=== PATIENT | female | born 1935 | race Hispanic/Latino ===

== ENCOUNTER 2017-04-23 11:24 | Emergency (ER) | payer MEDICARE, MEDICAID ==
[2017-04-23 11:38] VITALS: BP 142/76; TEMP 97.6
--- NOTE | 2017-04-23 13:30 | C.PDOC ---
History Of Present Illness 81 year old female presents to the ED with her sister for evaluation of a cut which she sustained to her left arm yesterday afternoon. Patient states she accidentally hit her arm against a door and sustained a cut since yesterday. Since the incident, patient applied Neosporin ointment has been cleaning the area regularly. Patient reports the is area was bleeding continuously and she has changed the dressing several times. Patient notes swelling of the arm and denies head injury LOC, extremity numbness/weakness. Time Seen by Provider: 04/23/17 12:38 Chief Complaint (Nursing): Abnormal Skin Integrity History Per: Patient, Family History/Exam Limitations: no limitations Current Symptoms Are (Timing): Still Present Location Of Injury: Left: Arm Quality Of Symptoms: Painful, Swollen Additional History Per: Patient, Family (sister) Past Medical History Reviewed: Historical Data, Nursing Documentation, Vital Signs Vital Signs: Last Vital Signs Temp 97.6 F 04/23/17 11:35 Pulse 75 04/23/17 13:53 Resp 18 04/23/17 13:53 BP 142/76 04/23/17 11:35 Pulse Ox 95 04/23/17 13:53 - Medical History PMH: Gall Bladder Disease, HTN, Hypercholesterolemia Denies: Alzheimer's Disease, Anemia, Arthritis, Asthma, Atrial Fibrillation, Bronchitis, Cardia Arrhythmia, CHF, COPD, Crohn's Disease, Dementia, Diverticulitis, Emphysema, Fractures, Gastritis, HIV, Hyperthyroidism, Hypothyroidism, Kidney Stones, Migraine, Mitral Valve Prolapse, Multiple Sclerosis, Osteoporosis, Pancreatitis, Parkinson's Disease, Peripheral Edema, Pneumonia, Pulmonary Embolism, Rheumatoid Arthritis, Seizures, Sickle Cell Disease, Sexually Transmitted Disease, Sleep Apnea, TIA Surgical History: Cholecystectomy Denies: Pacemaker - [facility] Procedures CORONAR ARTERIOGR-2 CATH (10/02/13) LEFT HEART CARDIAC CATH (10/02/13) LT HEART ANGIOCARDIOGRAM (10/02/13) PACKED CELL TRANSFUSION (10/02/13) VENOUS CATHETERIZATION NEC (10/02/13) Family History: States: Unknown Family Hx - Social History Hx Tobacco Use: Yes Hx Alcohol Use: No Hx Substance Use: No - Immunization History Hx Tetanus Toxoid Vaccination: No Hx Influenza Vaccination: No Hx Pneumococcal Vaccination: No Review Of Systems Musculoskeletal: Positive for: Arm Pain (left ) Skin: Positive for: Other (left arm laceration ) Neurological: Negative for: Weakness, Numbness, Other (head injury/LOC) Physical Exam - Physical Exam Appears: Non-toxic, No Acute Distress Skin: Warm, Dry, Other (1cm laceration to left forearm with active bleeding) Head: Atraumatic, Normacephalic Eye(s): bilateral: Normal Inspection Oral Mucosa: Moist Neck: Supple Extremity: Normal ROM, No Tenderness, Capillary Refill (less than 2 seconds ), No Deformity, Swelling (mild to left forearm ) Pulses: Left Radial: Normal Neurological/Psych: Oriented x3, Normal Speech, Normal Motor, Normal Sensation Gait: Steady ED Course And Treatment O2 Sat by Pulse Oximetry: 93 (on RA) Pulse Ox Interpretation: Normal Laceration - Laceration Repair left forearm Wound Length (In cm): 1 Description Of Wound: Linear Wound Examination: Irrigated With Saline Wound Closure: Steri Strips, Skin Glue Wound Complexity: Simple Medical Decision Making Medical Decision Making: Progress: Tetanus immunization IM administered. 1cm linear laceration to the left forearm. Wound irrigated with NS and explored. No FB seen. No tendon injury. Area cleansed with normal saline. Pressure applied for hemostasis without success. Wound was closed using skin glue and steri stripes. Patient tolerated well with minimal bleeding. On reassessment, patient is resting comfortably, showing no signs of distress and is stable for discharge. Patient is stable for discharge and is advised to follow up with her PMD within 1-2 days for further evaluation and/or return to the ED if symptoms worsen. Disposition - Disposition Referrals: Shaik Randhawa MD [Staff Provider] - Disposition: HOME/ ROUTINE Disposition Time: 13:30 Condition: GOOD Additional Instructions: Keep the wound dry and covered. Prescriptions: Cephalexin [cephalexin] 500 mg PO BID #10 cap Instructions: Laceration (DC), Skin Adhesive Care (ED) Forms: [facility] [employer] [facility] (Icelandic) - Clinical Impression Clinical Impression: Arm laceration - PA / PARTS TECHNICIAN / Resident Statement MD/DO has reviewed & agrees with the documentation as recorded. - Scribe Statement The provider has reviewed the documentation as recorded by the Scribe (Cass Martin) All medical record entries made by the Scribe were at my direction and personally dictated by me. I have reviewed the chart and agree that the record accurately reflects my personal performance of the history, physical exam, medical decision making, and the department course for this patient. I have also personally directed, reviewed, and agree with the discharge instructions and disposition.
[2017-04-23 13:53] VITALS: PULSE 75; RESP 18
[2017-04-23 22:15] VITALS: O2SAT 93
== END 2017-04-23 13:54 | disposition home or self-care (01) ==
LOC: C.ER 11:24
DX: S51.812A Laceration without foreign body of left forearm, initial encounter (principal); W22.8XXA Striking against or struck by other objects, initial encounter

== ENCOUNTER 2017-07-05 12:31 | Emergency (ER) | payer MEDICARE, MEDICAID ==
--- NOTE | 2017-07-05 13:06 | C.PDOC ---
History Of Present Illness 81 year old female, with a past medical history of hypertension, who was brought to the emergency department by EMS complaining of right sided hip pain s /p fall onset x3 days ago. She states the pain goes from the right side of her hip down to the right thigh. She noticed a bruise on right knee. Patient reports tripping at home and falling on her right side. She is not taking any pain medications. Patient states it is painful to walk and denies any head injury. Normally ambulates without cane or assistance. PMD: None provided. - HPI Time Seen by Provider: 07/05/17 12:55 History Per: Patient History/Exam Limitations: no limitations Onset/Duration Of Symptoms: Days (x3) Injury Occurred (Timing): Days Ago: (x3) Location Of Injury: Right: Hip, Thigh - Fall Fall:Prior To Injury: Tripped Past Medical History Reviewed: Historical Data, Nursing Documentation, Vital Signs Vital Signs: Last Vital Signs Temp 98.9 F 07/05/17 14:42 Pulse 63 07/05/17 14:42 Resp 20 07/05/17 14:42 BP 109/48 L 07/05/17 14:42 Pulse Ox 95 07/05/17 14:42 - Medical History PMH: Gall Bladder Disease, HTN, Hypercholesterolemia Surgical History: Cholecystectomy - [facility] Procedures CORONAR ARTERIOGR-2 CATH (10/02/13) LEFT HEART CARDIAC CATH (10/02/13) LT HEART ANGIOCARDIOGRAM (10/02/13) PACKED CELL TRANSFUSION (10/02/13) VENOUS CATHETERIZATION NEC (10/02/13) Family History: States: Unknown Family Hx - Social History Hx Tobacco Use: Yes Hx Alcohol Use: No Hx Substance Use: No - Immunization History Hx Tetanus Toxoid Vaccination: No Hx Influenza Vaccination: No Hx Pneumococcal Vaccination: No Review Of Systems Except As Marked, All Systems Reviewed And Found Negative. Musculoskeletal: Positive for: Leg Pain (right thigh and knee pain), Other ( right sided hip pain) Physical Exam - Physical Exam Appears: Well, No Acute Distress, Other (thin habitus) Skin: Normal Color, Warm, Dry Head: Atraumatic, Normacephalic Eye(s): bilateral: Normal Inspection, PERRL, EOMI Neck: Normal, Normal ROM Chest: Symmetrical Cardiovascular: Rhythm Regular Respiratory: Normal Breath Sounds, No Accessory Muscle Use, No Wheezing Extremity: Tenderness (right hip), No Deformity (no obvious deformity, no leg shortening), No Swelling (hip), No Other (No tenderness to knee, calf or foot. ) Neurological/Psych: Oriented x3, Normal Speech Medical Decision Making Medical Decision Making: Initial Impression: hip pain s/p fall Initial Plan: --Knee 3 views RT [RAD] --Hip min 2v w/ pelvis RT [RAD] --Re-evaluation 1525 Hip x-ray FINDINGS: There is no evidence of acute fracture or dislocation at the right hip. Vascular calcification noted. IMPRESSION: No evidence of acute fracture or dislocation. 1526 Knee x-ray FINDINGS: BONES: Normal. No fracture. JOINTS: Mild osteoarthritic changes JOINT EFFUSION: None. OTHER FINDINGS: Suspicious for osteopenia. Vascular calcification. IMPRESSION: No evidence of acute fracture or dislocation. Reassess Patient remained alert and oriented and stable in no acute distress. I explained resutls to patient. She feels comfortable going home and will be discharged. Rx given. family is at bedside to accompany patient home. Disposition Counseled Patient/Family Regarding: Studies Performed, Diagnosis, Need For Followup, Rx Given - Disposition Referrals: Shaik Randhawa MD [Staff Provider] - James Jernigan III, MD [Staff Provider] - Disposition: HOME/ ROUTINE Disposition Time: 14:29 Condition: STABLE Additional Instructions: Your xray was normal, no fracture. Please apply ice to area 15 minutes three times a day. Take tylenol or pain medicine as needed for pain every 6 hours, with food to not upset stomach. Follow up with orthopedic if pain persists over one week. Prescriptions: Acetaminophen [Tylenol Extra Strength] 500 mg PO Q8 #20 tablet traMADol [Ultram] 50 mg PO Q8 #20 tab Instructions: Hip Contusion (ED) Forms: [facility] (Wolof) - POA Present On Arrival: Falls Or Trauma - Clinical Impression Clinical Impression: Contusion of hip, right - PA / GARNISHER / Resident Statement MD/DO has reviewed & agrees with the documentation as recorded. - Scribe Statement The provider has reviewed the documentation as recorded by the Scribe Documented by Vineet Sams acting as a scribe for GREGORY Arambula All medical record entries made by the Scribe were at my direction and personally dictated by me. I have reviewed the chart and agree that the record accurately reflects my personal performance of the history, physical exam, medical decision making, and the department course for this patient. I have also personally directed, reviewed, and agree with the discharge instructions and disposition.
[2017-07-05 14:43] VITALS: BP 109/48; PULSE 63; RESP 20; TEMP 98.9; O2SAT 95
--- NOTE | 2017-07-05 15:27 | RAD ---
PROCEDURE: X-ray of the pelvis and right hip HISTORY: pain s.p fall COMPARISON: No prior similar study for TECHNIQUE: AP view of the pelvis oblique view of the right hip were obtained. FINDINGS: There is no evidence of acute fracture or dislocation at the right hip. Vascular calcification noted. IMPRESSION: No evidence of acute fracture or dislocation.
--- NOTE | 2017-07-05 15:28 | RAD ---
PROCEDURE: Right Knee Radiographs. HISTORY: pain s.p fall COMPARISON: None. FINDINGS: BONES: Normal. No fracture. JOINTS: Mild osteoarthritic changes JOINT EFFUSION: None. OTHER FINDINGS: Suspicious for osteopenia. Vascular calcification. IMPRESSION: No evidence of acute fracture or dislocation.
== END 2017-07-05 14:43 | disposition home or self-care (01) ==
LOC: C.ER 12:31
DX: S70.01XA Contusion of right hip, initial encounter (principal); W01.0XXA Fall on same level from slipping, tripping and stumbling without subsequent striking against object, initial encounter; Y92.009 Unspecified place in unspecified non-institutional (private) residence as the place of occurrence of the external cause

== ENCOUNTER 2018-12-09 14:10 | Inpatient (IN) | payer MEDICARE, MEDICAID ==
[2018-12-09] MEDS ORDERED: Albuterol 0.083% Inhal Sol (2.5 mg/3 mL) UD IH STA (14:31)
[2018-12-09] MEDS ORDERED: Albuterol-Ipratrop 3 mg / 0.5 (3 ml) UD IH STA (14:31)
--- NOTE | 2018-12-09 14:54 | RAD ---
Date of service: 12/09/2018 HISTORY: SOB COMPARISON: Frontal chest radiograph 10/03/2013. TECHNIQUE: 1 view obtained. FINDINGS: LUNGS: No active pulmonary disease. PLEURA: No significant pleural effusion identified, no pneumothorax apparent. CARDIOVASCULAR: No aortic atherosclerotic calcification present. Normal cardiac size. No pulmonary vascular congestion. Post CABG pattern suggested. OSSEOUS STRUCTURES: Sternotomy wires. VISUALIZED UPPER ABDOMEN: Normal. OTHER FINDINGS: None. IMPRESSION: No interval acute cardiopulmonary disease appreciated.
[2018-12-09 14:58] LABS: BASO # 0.1 K/uL (0.0-0.2); BASO % 0.6 % (0.0-2.0); LYMPH # 0.4 K/uL (1.0-4.3); LYMPH % 3.7 % (20.0-40.0); MEAN CELL VOLUME 91.6 fL (81.0-99.0); MEAN CORPUSCULAR HEMOGLOBIN 30.8 pg (27.0-31.0); MEAN CORPUSCULAR HGB CONC 33.7 g/dL (33.0-37.0); MEAN PLATELET VOLUME 8.2 fL (7.2-11.7); MONO # 0.8 K/uL (0.0-0.8); MONO % 8.6 % (0.0-10.0); NEUT # 8.6 K/uL (1.8-7.0); NEUT % 87.1 % (50.0-75.0); PLATELET COUNT 187 K/uL (130-400); RBC 4.86 Mil/uL (3.80-5.20); RED CELL DISTRIBUTION WIDTH 14.4 % (11.5-14.5)
[2018-12-09 15:00] LABS: WHITE BLOOD COUNT 9.8 K/uL (4.8-10.8)
[2018-12-09 15:14] LABS: ALB/GLOB RATIO 1.3 (1.0-2.1); ALBUMIN 4.2 g/dL (3.5-5.0); ALT/SGPT 18 U/L (9-52); AST/SGOT 35 U/L (14-36); BLOOD UREA NITROGEN 12 mg/dL (7-17); CALCIUM 8.9 mg/dl (8.6-10.4); GFR NON-AFRICAN AMERICAN > 60
--- NOTE | 2018-12-09 15:15 | C.PDOC ---
History Of Present Illness 83-year-old female, whose past medical history includes COPD and asthma, presents to the ED for evaluation of shortness of breath and cough which began two days ago. Patient states her symptoms are worse when lying down and states she has been unable to sleep since the onset. Patient denies fever, but was found to be febrile in the ED. Patient states her cough is productive of white phlegm that is occasionally yellow. She has only been using her Albuterol inhaler without relief. Patient was seen at her PMD, Dr. Randhawa's office, earlier today and was referred to the ED for further evaluation and possible admission. Patient denies chest pain, vomiting, extremity numbness/weakness. Time Seen by Provider: 12/09/18 14:23 Chief Complaint (Nursing): Shortness Of Breath History Per: Patient History/Exam Limitations: no limitations Onset/Duration Of Symptoms: Days (2) Quality: "Pain" Associated Symptoms: Productive Cough. denies: Chest Pain Additional History Per: Patient Past Medical History Reviewed: Historical Data, Nursing Documentation, Vital Signs Vital Signs: Last Vital Signs Temp 103.4 F H 12/09/18 15:10 Pulse 99 H 12/09/18 15:10 Resp 28 H 12/09/18 15:10 BP 150/58 L 12/09/18 15:10 Pulse Ox 99 12/09/18 15:10 Primary Care Provider: Shaik Randhawa - Medical History PMH: COPD, Gall Bladder Disease, HTN, Hypercholesterolemia Denies: HIV Surgical History: CABG, Cholecystectomy - [facility] Procedures CORONAR ARTERIOGR-2 CATH (10/02/13) LEFT HEART CARDIAC CATH (10/02/13) LT HEART ANGIOCARDIOGRAM (10/02/13) PACKED CELL TRANSFUSION (10/02/13) VENOUS CATHETERIZATION NEC (10/02/13) Family History: States: Unknown Family Hx - Social History Hx Tobacco Use: Yes Hx Alcohol Use: No Hx Substance Use: No - Immunization History Hx Tetanus Toxoid Vaccination: No Hx Influenza Vaccination: No Hx Pneumococcal Vaccination: No Review Of Systems Constitutional: Positive for: Fever Cardiovascular: Negative for: Chest Pain Respiratory: Positive for: Cough, Shortness of Breath, Sputum Gastrointestinal: Negative for: Vomiting Neurological: Negative for: Weakness, Numbness Physical Exam - Physical Exam Appears: Non-toxic, Other (in mild respiratory distress ) Skin: Normal Color, Warm, Dry Head: Atraumatic, Normacephalic Oral Mucosa: Moist Neck: Supple Chest: Symmetrical, No Deformity, No Tenderness Cardiovascular: Rhythm Regular Respiratory: Rales (left chest wall ), Rhonchi (left chest wall ), Wheezing (diffuse ), Other (audible wheezing and persistent cough noted. tachypneic ) Gastrointestinal/Abdominal: Soft, No Tenderness Back: Other (kyphosis ) Extremity: Normal ROM, Capillary Refill (less than 2 seconds ) Neurological/Psych: Oriented x3, Normal Speech, Normal Cognition ED Course And Treatment - Laboratory Results Result Diagrams: 12/09/18 14:54 12/09/18 14:54 Lab Interpretation: Abnormal (pO2 52, pCO2 37) ECG: Interpreted By Me ECG Rhythm: Sinus Rhythm, R BBB O2 Sat by Pulse Oximetry: 99 Pulse Ox Interpretation: Normal - Other Rad CXR X-Ray: Interpreted by Me, Viewed By Me Interpretation: Chest X-Ray unchanged from prior done on 09/2013. No acute infiltrates. Progress Note: Bloodwork, CXR, EKG ordered and reviewed. Tylenol PO, Albuterol INH, Solu-Medrol IVP, and IV Fluids given. - Physician Consult Information Time Consulting Physician Contacted: 16:29 Physician Contacted: Chrissie Martin Outcome Of Conversation: Patient to be admitted for cough with fever. Disposition - Disposition Disposition: HOSPITALIZED Disposition Time: 16:40 Condition: FAIR - POA Present On Arrival: None - Clinical Impression Clinical Impression: Chr obstructive pulmonary disease w/ acute lower respiratory infxn - Scribe Statement The provider has reviewed the documentation as recorded by the Scribe (Cass Martin) Provider Attestation: All medical record entries made by the Scribe were at my direction and personally dictated by me. I have reviewed the chart and agree that the record accurately reflects my personal performance of the history, physical exam, medical decision making, and the department course for this patient. I have also personally directed, reviewed, and agree with the discharge instructions and disposition.
[2018-12-09] MEDS ORDERED: Albuterol 0.083% Inhal Sol (2.5 mg/3 mL) UD ONE (15:17)
[2018-12-09] MEDS ORDERED: Albuterol-Ipratrop 3 mg / 0.5 (3 ml) UD ONE (15:18)
[2018-12-09 15:33] LABS: LYMPHOCYTE 1 % (20-40); MONOCYTE 13 % (0-10); NEUTROPHIL 86 % (50-75); PLATELET ESTIMATE NORMAL (NORMAL); TOTAL CELLS COUNTED 100
[2018-12-09 15:51] LABS: VENOUS BLOOD GAS BASE EXCESS 1.7 mmol/L (0.0-2.0); VENOUS BLOOD GAS PCO2 51 mmHg (40-60); VENOUS BLOOD GAS PO2 33 mm/Hg (30-55); VENOUS BLOOD PH 7.35 (7.32-7.43)
[2018-12-09 16:18] LABS: ABG ALLEN TEST POS; ARTERIAL BLOOD GAS HEMOGLOBIN 14.1 g/dL (11.7-17.4); ARTERIAL BLOOD GAS O2 SAT 90.6 % (95-98); ARTERIAL BLOOD GAS PCO2 37 mm/Hg (35-45); ARTERIAL BLOOD GAS PH 7.41 (7.35-7.45); ARTERIAL BLOOD GAS PO2 52 mm/Hg (80-100); ARTERIAL BLOOD GAS TCO2 24.6 mmol/L (22-28)
[2018-12-09] MEDS ORDERED: cefTRIAXone IV 1 gm in Dextros 50 ML IVPB ONE (16:41)
[2018-12-09] MEDS ORDERED: Azithromycin 500mg/250ML NS 500 MG/250 ML BAG IV STA (16:43)
[2018-12-09] MEDS ORDERED: Azithromycin 500mg/250ML NS 500 MG/250 ML BAG IVPB ONE (17:07)
[2018-12-09 17:23] LABS: SQUAMOUS EPITHIAL 2 /hpf (0-5); URINE BACTERIA RARE (<OCC); URINE BILIRUBIN NEGATIVE (NEGATIVE); URINE BLOOD NEGATIVE (NEGATIVE); URINE CLARITY Clear (Clear); URINE COLOR Yellow (YELLOW); URINE GLUCOSE (UA) NORMAL (Normal); URINE LEUKOCYTE ESTERASE NEG Leu/uL (Negative); URINE PROTEIN 2+ mg/dL (NEGATIVE)
--- NOTE | 2018-12-09 17:54 | CP.PCM.CON ---
History of Present Illness - History of Present Illness History of Present Illness: 83-year-old female was admitted via the ED for evaluation of shortness of breath and cough which began two days ago. Patient was found to be febrile in the ED. Patient states her cough is productive of white phlegm that is occasionally yellow. She was referred for ID eval for antibiotic management and started on empiric rx for CAP - Medical History PMH: COPD, Gall Bladder Disease, HTN, Hypercholesterolemia Denies: HIV Surgical History: CABG, Cholecystectomy - [facility] Procedures CORONAR ARTERIOGR-2 CATH (10/02/13) LEFT HEART CARDIAC CATH (10/02/13) LT HEART ANGIOCARDIOGRAM (10/02/13) PACKED CELL TRANSFUSION (10/02/13) VENOUS CATHETERIZATION NEC (10/02/13) Review of Systems - Constitutional Constitutional: As Per HPI, Chills, Fever, Malaise - EENT Eyes: absent: As Per HPI, Blind Spots, Blurred Vision, Change in Vision, Decreased Night Vision, Diplopia, Discharge, Dry Eye, Exophthalmos, Floaters, Irritation, Itchy Eyes, Loss of Peripheral Vision, Pain, Photophobia, Requires Corrective Lenses, Sees Flashes, Spots in Vision, Tunnel Vision, Other Visual Disturbances, Loss of Vision, Other Ears: absent: As Per HPI, Decreased Hearing, Ear Discharge, Ear Pain, Tinnitus, Abnormal Hearing, Disequilibrium, Dizziness, Other Nose/Mouth/Throat: absent: As Per HPI, Epistaxis, Nasal Congestion, Nasal Discharge, Nasal Obstruction, Nasal Trauma, Nose Pain, Post Nasal Drip, Sinus Pain, Sinus Pressure, Bleeding Gums, Change in Voice, Dental Pain, Dry Mouth, Dysphagia, Halitosis, Hoarsness, Lip Swelling, Mouth Lesions, Mouth Pain, Odynophagia, Sore Throat, Throat Swelling, Tongue Swelling, Facial Pain, Neck Pain, Neck Mass, Other - Cardiovascular Cardiovascular: As Per HPI - Respiratory Respiratory: Cough. absent: Hemoptysis - Gastrointestinal Gastrointestinal: As Per HPI - Reproductive: Female Reproductive:Female: absent: As Per HPI, Amenorrhea, Amenorrhea/ Control, Currently Menstual, Cycle <21 Days, Cycle >35 Days, Cycle Variable, Menses 1-7 Days, Menses >/= 8 Days, Menses Variable, Cycle > 4 Weeks Between, No Menses for 6 Months, Heavy Menses, Light Menses, Normal Menses, Spotting Between Cycles, S/P Hysterectomy, Menopausal, Post Menopausal, Premenarche, Abnormal Vaginal Bleeding, Dysmenorrhea, Dyspareunia, Genital Lesions, Genital Pruritis, Pelvic Pain, Prolapse Symptoms, Sexual Dysfunction, Vaginal Discharge, Vaginal Dryness, Vaginal Odor, Vaginal Pruritis, Other - Menstruation Menstruation: absent: As Per HPI, Amenorrhea, Amenorrhea/ Control, Currently Menstual, Cycle <21 Days, Cycle >35 Days, Cycle Variable, Menses 1-7 Days, Menses >/= 8 Days, Menses Variable, Cycle > 4 Weeks Between, No Menses for 6 Months, Heavy Menses, Light Menses, Normal Menses, Spotting Between Cycles, S/P Hysterectomy, Menopausal, Post Menopausal, Premenarche, Abnormal Vaginal Bleeding, Dysmenorrhea, Other - Musculoskeletal Musculoskeletal: absent: As Per HPI, Abnormal Gait, Arthralgias, Atrophy, Back Pain, Deformity, Joint Swelling, Limited Range of Motion, Loss of Height, Muscle Cramps, Muscle Weakness, Myalgias, Neck Pain, Numbness, Radiating Pain into Limb, Stiffness, Tingling, Other - Integumentary Integumentary: absent: As Per HPI, Acne, Alopecia, Bleeding Lesions, Change in Hair, Change in Nails, Change in Pigmentation, Changing Lesions, Dry Skin, Erythema, Furuncle, Hirsutism, Lesions, New Lesions, Non-Healing Lesions, Photosensitivity, Pruritus, Rash, Skin Pain, Skin Ulcer, Sores, Striae, Swelling, Unusual Bruising, Wounds, Jaundice, Other - Neurological Neurological: absent: As Per HPI, Abnormal Gait, Abnormal Hearing, Abnormal Movements, Abnormal Speech, Behavioral Changes, Burning Sensations, Confusion, Convulsions, Disequilibrium, Dizziness, Numbness, Focal Weakness, Frequent Falls, Headaches, Lack of Coordination, Loss of Vision, Memory Loss, Paresthesias, Radicular Pain, Restless Legs, Sensory Deficit, Syncope, Tingling, Tremor, Vertigo, Weakness, Other Visual Disturbances, Other - Psychiatric Psychiatric: absent: As Per HPI, Abnormal Sleep Pattern, Anhedonia, Anxiety, Auditory Hallucinations, Behavioral Changes, Change in Appetite, Change in Libido, Confusion, Depression, Difficulty Concentrating, Hallucinations, Homicidal Ideation, Hopelessness, Irritability, Memory Loss, Mood Swings, Panic Attacks, Paranoia, Suicidal Ideation, Visual Hallucinations, Tactile Hallucinations, Other - Endocrine Endocrine: absent: As Per HPI, Change in Body Appearance, Change in Libido, Cold Intolorance, Deepening of Voice, Excessive Sweating, Fatigue, Flushing, Heat Intolorance, Increase in Ring/Shoe/Hat Size, Palpitations, Polydipsia, Polyphagia, Polyuria, Other - Hematologic/Lymphatic Hematologic: absent: As Per HPI, Easy Bleeding, Easy Bruising, Lymphadenopathy, Other Past Patient History - Past Medical History & Family History Past Medical History?: Yes - Past Social History Smoking Status: Light Smoker < 10 Cigarettes Daily - CARDIAC Hx Hypercholesterolemia: Yes Hx Hypertension: Yes - PULMONARY Hx Chronic Obstructive Pulmonary Disease (COPD): Yes - NEUROLOGICAL Hx Alzheimer's Disease: No Hx Dementia: No Hx Migraine: No Hx Multiple Sclerosis: No Hx Parkinson's Disease: No Hx Seizures: No Hx Transient Ischemic Attacks (TIA): No - HEENT Hx HEENT Problems: No Hx Blind: No Hx Cataracts: Yes (bilateral cataract removal 15 yr ago) Hx Deafness: No Hx Difficulty Chewing: No Hx Epistaxis: No Hx Glaucoma: No Hx Macular Degeneration: No - RENAL Hx Kidney Stones: No - ENDOCRINE/METABOLIC Hx Hyperthyroidism: No Hx Hypothyroidism: No - HEMATOLOGICAL/ONCOLOGICAL Hx Human Immunodeficiency Virus (HIV): No - INTEGUMENTARY Hx Basil Cell: No Hx Shaffer: No Hx Cellulitis: No Hx Eczema: No Hx Melanoma: No Hx Psoriasis: No Hx Squamous Cell: No - MUSCULOSKELETAL/RHEUMATOLOGICAL Hx Arthritis: No Hx Fractures: No Hx Osteoporosis: No Hx Rheumatoid Arthritis: No - GASTROINTESTINAL Hx Gall Bladder Disease: Yes - GENITOURINARY/GYNECOLOGICAL Hx Sexually Transmitted Disorders: No - PSYCHIATRIC Hx Substance Use: No - SURGICAL HISTORY Hx Cholecystectomy: Yes Hx Coronary Artery Bypass Graft: Yes Meds Allergies/Adverse Reactions: Allergies Allergy/AdvReac Type Severity Reaction Status Date / Time No Known Allergies Allergy Verified 12/09/18 14:22 - Medications Medications: Current Medications Azithromycin (Zithromax 500mg In Ns Addvantage) 500 mg in 250 mls @ 166.667 mls/hr IV STAT STA; Protocol Stop: 12/09/18 18:12 Last Admin: 12/09/18 17:15 Dose: 166.667 mls/hr Physical Exam - Constitutional Appears: Toxic, In Acute Distress - Head Exam Head Exam: ATRAUMATIC, NORMOCEPHALIC - Eye Exam Eye Exam: absent: Scleral icterus Pupil Exam: NORMAL ACCOMODATION - ENT Exam ENT Exam: Mucous Membranes Dry, Normal External Ear Exam, Normal Oropharynx - Neck Exam Neck exam: Positive for: Normal Inspection - Respiratory Exam Respiratory Exam: Decreased Breath Sounds, Prolonged Expiratory Phase, Rhonchi - Cardiovascular Exam Cardiovascular Exam: Tachycardia, REGULAR RHYTHM, +S1, +S2 - GI/Abdominal Exam GI & Abdominal Exam: Soft. absent: Diminished Bowel Sounds, Tenderness - Rectal Exam Rectal Exam: Deferred - Exam Exam: NORMAL INSPECTION - Extremities Exam Extremities exam: Negative for: calf tenderness, pedal edema - Back Exam Back exam: absent: CVA tenderness (L), CVA tenderness (R), paraspinal tenderness - Neurological Exam Neurological exam: Alert, CN II-XII Intact, Oriented x3, Reflexes Normal - Psychiatric Exam Psychiatric exam: Depressed - Skin Skin Exam: Dry, Intact Results - Vital Signs Recent Vital Signs: Last Vital Signs Temp 101 F H 12/09/18 17:28 Pulse 86 12/09/18 17:28 Resp 21 12/09/18 17:28 BP 109/50 L 12/09/18 17:28 Pulse Ox 94 L 12/09/18 17:28 - Labs Result Diagrams: 12/09/18 14:54 12/09/18 14:54 Labs: Laboratory Results - last 24 hr 12/09/18 12/09/18 12/09/18 14:54 14:54 15:40 WBC 9.8 D RBC 4.86 Hgb 15.0 D Hct 44.5 MCV 91.6 MCH 30.8 MCHC 33.7 RDW 14.4 Plt Count 187 MPV 8.2 Neut % (Auto) 87.1 H Lymph % (Auto) 3.7 L [place] % (Auto) 8.6 Eos % (Auto) 0.0 Baso % (Auto) 0.6 Neut # (Auto) 8.6 H Lymph # (Auto) 0.4 L [place] # (Auto) 0.8 Eos # (Auto) 0.0 Baso # (Auto) 0.1 Neutrophils % (Manual) 86 H Lymphocytes % (Manual) 1 L Monocytes % (Manual) 13 H Platelet Estimate Normal RBC Morphology Normal Puncture Site pCO2 pO2 33 HCO3 ABG pH ABG Total CO2 ABG O2 Saturation ABG Base Excess ABG Hemoglobin ABG Carboxyhemoglobin POC ABG HHb (Measured) ABG Methemoglobin Kirk Test VBG pH 7.35 VBG pCO2 51 VBG HCO3 25.2 VBG Total CO2 29.8 H VBG O2 Sat (Calc) 63.5 VBG Base Excess 1.7 VBG Potassium 4.1 A-a O2 Difference Respiratory Index Hgb O2 Saturation Glucose 123 H Lactate 1.4 Liter Flow FiO2 Sodium 135 136.0 Potassium 4.3 Chloride 99 101.0 Carbon Dioxide 28 Anion Gap 13 BUN 12 Creatinine 0.6 L Est GFR ( Amer) > 60 Est GFR (Non-Af Amer) > 60 Random Glucose 128 H D Calcium 8.9 Total Bilirubin 0.4 AST 35 ALT 18 Alkaline Phosphatase 111 Total Protein 7.5 Albumin 4.2 Globulin 3.3 Albumin/Globulin Ratio 1.3 Venous Blood Potassium 4.1 Urine Color Urine Clarity Urine pH Ur Specific [place] Urine Protein Urine Glucose (UA) Urine Ketones Urine Blood Urine Nitrate Urine Bilirubin Urine Urobilinogen Ur Leukocyte Esterase Urine WBC (Auto) Urine RBC (Auto) Ur Squamous Epith Cells Urine Bacteria 12/09/18 12/09/18 16:15 16:54 WBC RBC Hgb Hct MCV MCH MCHC RDW Plt Count MPV Neut % (Auto) Lymph % (Auto) [place] % (Auto) Eos % (Auto) Baso % (Auto) Neut # (Auto) Lymph # (Auto) [place] # (Auto) Eos # (Auto) Baso # (Auto) Neutrophils % (Manual) Lymphocytes % (Manual) Monocytes % (Manual) Platelet Estimate RBC Morphology Puncture Site Rra pCO2 37 pO2 52 L HCO3 24.0 ABG pH 7.41 ABG Total CO2 24.6 ABG O2 Saturation 90.6 L ABG Base Excess -0.8 ABG Hemoglobin 14.1 ABG Carboxyhemoglobin 4.9 H POC ABG HHb (Measured) 8.8 H ABG Methemoglobin 1.3 Kirk Test Pos VBG pH VBG pCO2 VBG HCO3 VBG Total CO2 VBG O2 Sat (Calc) VBG Base Excess VBG Potassium A-a O2 Difference 130.0 Respiratory Index 2.5 Hgb O2 Saturation 85.0 L Glucose Lactate Liter Flow 3.0 FiO2 32.0 Sodium Potassium Chloride Carbon Dioxide Anion Gap BUN Creatinine Est GFR ( Amer) Est GFR (Non-Af Amer) Random Glucose Calcium Total Bilirubin AST ALT Alkaline Phosphatase Total Protein Albumin Globulin Albumin/Globulin Ratio Venous Blood Potassium Urine Color Yellow Urine Clarity Clear Urine pH 5.0 Ur Specific [place] 1.020 Urine Protein 2+ H Urine Glucose (UA) Normal Urine Ketones Negative Urine Blood Negative Urine Nitrate Negative Urine Bilirubin Negative Urine Urobilinogen 2.0 H Ur Leukocyte Esterase Neg Urine WBC (Auto) 1 Urine RBC (Auto) 1 Ur Squamous Epith Cells 2 Urine Bacteria Rare Assessment & Plan (1) Chr obstructive pulmonary disease w/ acute lower respiratory infxn Status: Acute (2) Sepsis Status: Acute (3) Bronchopneumonia Status: Acute - Assessment and Plan (Free Text) Assessment: ICU eval empoiric IV rx cultures and serologies
[2018-12-09] MEDS ORDERED: Albuterol-Ipratrop 3 mg / 0.5 (3 ml) UD INH STA (18:02)
[2018-12-09] MEDS ORDERED: Albuterol 0.083% Inhal Sol (2.5 mg/3 mL) UD INH PRN (18:07)
--- NOTE | 2018-12-09 18:20 | CP.PCM.CON ---
<Blayne Raines - Last Filed: 12/09/18 18:11> History of Present Illness - History of Present Illness History of Present Illness: PGY-1 Critical Care Consult Note for Dr. Simms Reason for consult: COPD, respiratory distress Patient is an 83 year old female with past medical history of COPD, asthma, CAD s/p CABG, PVD, HTN, HLD presenting to ED from PMD's office with worsening shortness of breath and associated productive cough (whitish yellow phlegm) that began 2 days prior to arrival. Symptoms are worse when lying flat and she has been unable to sleep since onset of symptoms. She has only been using her home albuterol inhaler without relief of symptoms. She was seen by her PMD (Dr. Randhawa) earlier today and was referred to ED for further evaluation. Denies fevers/chills, headaches, dizziness, chest pain, palpitations, abdominal pain, n/v/d/c, dysuria, or changes in stool. 12 pt ROS reviewed and otherwise negative. Of note, patient was febrile in the ED with a Tmax of 103.4. She received albuterol x 1, duoneb x1, solumedrol 125 mg IVP x1, as well as empiric abx with rocephin/azithromycin x1. PMHx: COPD, asthma, CAD, PVD PSHx: CABG 2008, b/l femoropopliteal bypass, cholecystectomy Allergies: NKDA Home Meds: reviewed Family Hx: unknown Social Hx: Denies alcohol or illicit drug use. + tobacco (<10 cigarettes daily x ~60 years) Review of Systems - Review of Systems All systems: reviewed and no additional remarkable complaints except Review of Systems: as per HPI Past Patient History - Past Medical History & Family History Past Medical History?: Yes - Past Social History Smoking Status: Light Smoker < 10 Cigarettes Daily - CARDIAC Hx Hypercholesterolemia: Yes Hx Hypertension: Yes - PULMONARY Hx Chronic Obstructive Pulmonary Disease (COPD): Yes - NEUROLOGICAL Hx Alzheimer's Disease: No Hx Dementia: No Hx Migraine: No Hx Multiple Sclerosis: No Hx Parkinson's Disease: No Hx Seizures: No Hx Transient Ischemic Attacks (TIA): No - HEENT Hx HEENT Problems: No Hx Blind: No Hx Cataracts: Yes (bilateral cataract removal 15 yr ago) Hx Deafness: No Hx Difficulty Chewing: No Hx Epistaxis: No Hx Glaucoma: No Hx Macular Degeneration: No - RENAL Hx Kidney Stones: No - ENDOCRINE/METABOLIC Hx Hyperthyroidism: No Hx Hypothyroidism: No - HEMATOLOGICAL/ONCOLOGICAL Hx Human Immunodeficiency Virus (HIV): No - INTEGUMENTARY Hx Basil Cell: No Hx Shaffer: No Hx Cellulitis: No Hx Eczema: No Hx Melanoma: No Hx Psoriasis: No Hx Squamous Cell: No - MUSCULOSKELETAL/RHEUMATOLOGICAL Hx Arthritis: No Hx Fractures: No Hx Osteoporosis: No Hx Rheumatoid Arthritis: No - GASTROINTESTINAL Hx Gall Bladder Disease: Yes - GENITOURINARY/GYNECOLOGICAL Hx Sexually Transmitted Disorders: No - PSYCHIATRIC Hx Substance Use: No - SURGICAL HISTORY Hx Cholecystectomy: Yes Hx Coronary Artery Bypass Graft: Yes Meds Allergies/Adverse Reactions: Allergies Allergy/AdvReac Type Severity Reaction Status Date / Time No Known Allergies Allergy Verified 12/09/18 14:22 - Medications Medications: Current Medications Albuterol Sulfate (Albuterol 0.083% Inhal Domi (2.5 Mg/3 Ml) Ud) 2.5 mg INH RQ6 PRN PRN Reason: Shortness of Breath Azithromycin (Zithromax 500mg In Ns Addvantage) 500 mg in 250 mls @ 166.667 mls/hr IV STAT STA; Protocol Stop: 12/09/18 18:12 Last Admin: 12/09/18 17:15 Dose: 166.667 mls/hr Physical Exam - Constitutional Appears: Non-toxic, Other (mild respiratory distress) - Head Exam Head Exam: ATRAUMATIC, NORMAL INSPECTION, NORMOCEPHALIC - Eye Exam Eye Exam: EOMI, Normal appearance, PERRL Pupil Exam: NORMAL ACCOMODATION - ENT Exam ENT Exam: Mucous Membranes Moist, Normal Exam - Neck Exam Neck exam: Positive for: Normal Inspection - Respiratory Exam Respiratory Exam: Decreased Breath Sounds, Rhonchi, Wheezes. absent: Accessory Muscle Use - Cardiovascular Exam Cardiovascular Exam: Tachycardia, +S1, +S2 - GI/Abdominal Exam GI & Abdominal Exam: Normal Bowel Sounds, Soft. absent: Distended, Firm, Guarding, Rebound, Rigid, Tenderness - Extremities Exam Extremities exam: Positive for: normal capillary refill, normal inspection, pedal pulses present. Negative for: calf tenderness, pedal edema - Back Exam Back exam: NORMAL INSPECTION - Neurological Exam Neurological exam: Alert, Oriented x3 - Skin Skin Exam: Dry, Intact, Normal Color, Warm Results - Vital Signs Recent Vital Signs: Last Vital Signs Temp 101 F H 12/09/18 17:28 Pulse 86 12/09/18 17:28 Resp 21 12/09/18 17:28 BP 109/50 L 12/09/18 17:28 Pulse Ox 94 L 12/09/18 17:28 - Labs Result Diagrams: 12/09/18 14:54 12/09/18 14:54 Labs: Laboratory Results - last 24 hr 12/09/18 12/09/18 12/09/18 14:54 14:54 15:40 WBC 9.8 D RBC 4.86 Hgb 15.0 D Hct 44.5 MCV 91.6 MCH 30.8 MCHC 33.7 RDW 14.4 Plt Count 187 MPV 8.2 Neut % (Auto) 87.1 H Lymph % (Auto) 3.7 L [place] % (Auto) 8.6 Eos % (Auto) 0.0 Baso % (Auto) 0.6 Neut # (Auto) 8.6 H Lymph # (Auto) 0.4 L [place] # (Auto) 0.8 Eos # (Auto) 0.0 Baso # (Auto) 0.1 Neutrophils % (Manual) 86 H Lymphocytes % (Manual) 1 L Monocytes % (Manual) 13 H Platelet Estimate Normal RBC Morphology Normal Puncture Site pCO2 pO2 33 HCO3 ABG pH ABG Total CO2 ABG O2 Saturation ABG Base Excess ABG Hemoglobin ABG Carboxyhemoglobin POC ABG HHb (Measured) ABG Methemoglobin Kirk Test VBG pH 7.35 VBG pCO2 51 VBG HCO3 25.2 VBG Total CO2 29.8 H VBG O2 Sat (Calc) 63.5 VBG Base Excess 1.7 VBG Potassium 4.1 A-a O2 Difference Respiratory Index Hgb O2 Saturation Glucose 123 H Lactate 1.4 Liter Flow FiO2 Sodium 135 136.0 Potassium 4.3 Chloride 99 101.0 Carbon Dioxide 28 Anion Gap 13 BUN 12 Creatinine 0.6 L Est GFR ( Amer) > 60 Est GFR (Non-Af Amer) > 60 Random Glucose 128 H D Calcium 8.9 Total Bilirubin 0.4 AST 35 ALT 18 Alkaline Phosphatase 111 Total Protein 7.5 Albumin 4.2 Globulin 3.3 Albumin/Globulin Ratio 1.3 Venous Blood Potassium 4.1 Urine Color Urine Clarity Urine pH Ur Specific [place] Urine Protein Urine Glucose (UA) Urine Ketones Urine Blood Urine Nitrate Urine Bilirubin Urine Urobilinogen Ur Leukocyte Esterase Urine WBC (Auto) Urine RBC (Auto) Ur Squamous Epith Cells Urine Bacteria 12/09/18 12/09/18 16:15 16:54 WBC RBC Hgb Hct MCV MCH MCHC RDW Plt Count MPV Neut % (Auto) Lymph % (Auto) [place] % (Auto) Eos % (Auto) Baso % (Auto) Neut # (Auto) Lymph # (Auto) [place] # (Auto) Eos # (Auto) Baso # (Auto) Neutrophils % (Manual) Lymphocytes % (Manual) Monocytes % (Manual) Platelet Estimate RBC Morphology Puncture Site Rra pCO2 37 pO2 52 L HCO3 24.0 ABG pH 7.41 ABG Total CO2 24.6 ABG O2 Saturation 90.6 L ABG Base Excess -0.8 ABG Hemoglobin 14.1 ABG Carboxyhemoglobin 4.9 H POC ABG HHb (Measured) 8.8 H ABG Methemoglobin 1.3 Kirk Test Pos VBG pH VBG pCO2 VBG HCO3 VBG Total CO2 VBG O2 Sat (Calc) VBG Base Excess VBG Potassium A-a O2 Difference 130.0 Respiratory Index 2.5 Hgb O2 Saturation 85.0 L Glucose Lactate Liter Flow 3.0 FiO2 32.0 Sodium Potassium Chloride Carbon Dioxide Anion Gap BUN Creatinine Est GFR ( Amer) Est GFR (Non-Af Amer) Random Glucose Calcium Total Bilirubin AST ALT Alkaline Phosphatase Total Protein Albumin Globulin Albumin/Globulin Ratio Venous Blood Potassium Urine Color Yellow Urine Clarity Clear Urine pH 5.0 Ur Specific [place] 1.020 Urine Protein 2+ H Urine Glucose (UA) Normal Urine Ketones Negative Urine Blood Negative Urine Nitrate Negative Urine Bilirubin Negative Urine Urobilinogen 2.0 H Ur Leukocyte Esterase Neg Urine WBC (Auto) 1 Urine RBC (Auto) 1 Ur Squamous Epith Cells 2 Urine Bacteria Rare Assessment & Plan - Assessment and Plan (Free Text) Assessment: 83 year old female with pmhx of COPD, asthma, CAD s/p CABG, HTN, HLD presenting with worsening sob and associated productive cough. To be transferred to ICU for acute respiratory failure, hypoxemia, further monitoring. Plan: Acute Respiratory Failure, Hypoxemic -tachypneic, desaturating on NC, face mask -febrile -ABG: pO2 52 -CXR: no acute infiltrates noted -repeat ABG in am -BIPAP prn -duonebs 3q6 kash -solumedrol 40 mg IVP q8 kash -empiric abx coverage -rocephin 1 gm IVPB daily -azithromycin 500 mg IVPB daily -f/u cultures Hx of CAD -s/p CABG 2008 -cardiac cath report 2014: L circumflex totally occluded at its origin. Proximal mid to distal subtotal occlusion of R coronary. The vessel was of a small caliber and not amenable to intervention because of its diffuse and complex disease. -No further plans were made to proceed with intervention b/c of non-am enability of R coronary artery for intervention -resume home ASA, plavix, statin, BB Hx of HTN -resume home enalapril PPx, Diet, Disposition -DVT ppx: scds, heparin -GI ppx: protonix -Diet: HHD -Dispo: to be transferred to ICU for further monitoring Case discussed with Dr. Mendez Raines DO, PGY-1 <Sergei Simms S - Last Filed: 12/09/18 18:58> Meds - Medications Medications: Current Medications Albuterol/Ipratropium (Duoneb 3 Mg/0.5 Mg (3 Ml) Ud) 3 ml INH RQ6 KASH Aspirin (Ecotrin) 81 mg PO DAILY KASH Carbamazepine (Tegretol) 200 mg PO TID KASH Clopidogrel Bisulfate (Plavix) 75 mg PO DAILY KASH Enalapril Maleate (Vasotec) 5 mg PO DAILY KASH Heparin Sodium (Porcine) (Heparin) 5,000 units SC Q12 KASH Ceftriaxone Sodium 1 gm/ (Sodium Chloride) 100 mls @ 100 mls/hr IVPB DAILY KASH; Protocol Azithromycin 500 mg/ Sodium (Chloride) 250 mls @ 250 mls/hr IVPB DAILY KASH; Protocol Methylprednisolone (Solu-Medrol) 40 mg IVP Q8 KASH Metoprolol Tartrate (Lopressor) 50 mg PO BID KASH Pantoprazole Sodium (Protonix Inj) 40 mg IVP DAILY KASH Rosuvastatin Calcium (Crestor) 5 mg PO HS KASH Results - Vital Signs Recent Vital Signs: Last Vital Signs Temp 98.3 F 12/09/18 18:40 Pulse 86 12/09/18 18:10 Resp 20 12/09/18 18:10 BP 121/51 L 12/09/18 18:10 Pulse Ox 100 12/09/18 18:40 - Labs Result Diagrams: 12/09/18 14:54 12/09/18 14:54 Labs: Laboratory Results - last 24 hr 12/09/18 12/09/18 12/09/18 14:54 14:54 15:40 WBC 9.8 D RBC 4.86 Hgb 15.0 D Hct 44.5 MCV 91.6 MCH 30.8 MCHC 33.7 RDW 14.4 Plt Count 187 MPV 8.2 Neut % (Auto) 87.1 H Lymph % (Auto) 3.7 L [place] % (Auto) 8.6 Eos % (Auto) 0.0 Baso % (Auto) 0.6 Neut # (Auto) 8.6 H Lymph # (Auto) 0.4 L [place] # (Auto) 0.8 Eos # (Auto) 0.0 Baso # (Auto) 0.1 Neutrophils % (Manual) 86 H Lymphocytes % (Manual) 1 L Monocytes % (Manual) 13 H Platelet Estimate Normal RBC Morphology Normal Puncture Site pCO2 pO2 33 HCO3 ABG pH ABG Total CO2 ABG O2 Saturation ABG Base Excess ABG Hemoglobin ABG Carboxyhemoglobin POC ABG HHb (Measured) ABG Methemoglobin Kirk Test VBG pH 7.35 VBG pCO2 51 VBG HCO3 25.2 VBG Total CO2 29.8 H VBG O2 Sat (Calc) 63.5 VBG Base Excess 1.7 VBG Potassium 4.1 A-a O2 Difference Respiratory Index Hgb O2 Saturation Glucose 123 H Lactate 1.4 Liter Flow FiO2 Sodium 135 136.0 Potassium 4.3 Chloride 99 101.0 Carbon Dioxide 28 Anion Gap 13 BUN 12 Creatinine 0.6 L Est GFR ( Amer) > 60 Est GFR (Non-Af Amer) > 60 Random Glucose 128 H D Calcium 8.9 Total Bilirubin 0.4 AST 35 ALT 18 Alkaline Phosphatase 111 Total Protein 7.5 Albumin 4.2 Globulin 3.3 Albumin/Globulin Ratio 1.3 Venous Blood Potassium 4.1 Urine Color Urine Clarity Urine pH Ur Specific [place] Urine Protein Urine Glucose (UA) Urine Ketones Urine Blood Urine Nitrate Urine Bilirubin Urine Urobilinogen Ur Leukocyte Esterase Urine WBC (Auto) Urine RBC (Auto) Ur Squamous Epith Cells Urine Bacteria Influenza Typ A,B (EIA) 12/09/18 12/09/18 12/09/18 16:15 16:54 Unknown WBC RBC Hgb Hct MCV MCH MCHC RDW Plt Count MPV Neut % (Auto) Lymph % (Auto) [place] % (Auto) Eos % (Auto) Baso % (Auto) Neut # (Auto) Lymph # (Auto) [place] # (Auto) Eos # (Auto) Baso # (Auto) Neutrophils % (Manual) Lymphocytes % (Manual) Monocytes % (Manual) Platelet Estimate RBC Morphology Puncture Site Rra pCO2 37 pO2 52 L HCO3 24.0 ABG pH 7.41 ABG Total CO2 24.6 ABG O2 Saturation 90.6 L ABG Base Excess -0.8 ABG Hemoglobin 14.1 ABG Carboxyhemoglobin 4.9 H POC ABG HHb (Measured) 8.8 H ABG Methemoglobin 1.3 Kirk Test Pos VBG pH VBG pCO2 VBG HCO3 VBG Total CO2 VBG O2 Sat (Calc) VBG Base Excess VBG Potassium A-a O2 Difference 130.0 Respiratory Index 2.5 Hgb O2 Saturation 85.0 L Glucose Lactate Liter Flow 3.0 FiO2 32.0 Sodium Potassium Chloride Carbon Dioxide Anion Gap BUN Creatinine Est GFR ( Amer) Est GFR (Non-Af Amer) Random Glucose Calcium Total Bilirubin AST ALT Alkaline Phosphatase Total Protein Albumin Globulin Albumin/Globulin Ratio Venous Blood Potassium Urine Color Yellow Urine Clarity Clear Urine pH 5.0 Ur Specific [place] 1.020 Urine Protein 2+ H Urine Glucose (UA) Normal Urine Ketones Negative Urine Blood Negative Urine Nitrate Negative Urine Bilirubin Negative Urine Urobilinogen 2.0 H Ur Leukocyte Esterase Neg Urine WBC (Auto) 1 Urine RBC (Auto) 1 Ur Squamous Epith Cells 2 Urine Bacteria Rare Influenza Typ A,B (EIA) Negative for flu a/b Attending/Attestation - Attestation I have personally seen and examined this patient.: Yes I have fully participated in the care of the patient.: Yes I have reviewed all pertinent clinical information: Yes
--- NOTE | 2018-12-09 19:47 | CP.PCM.HP ---
Past Patient History - Past Medical History & Family History Past Medical History?: Yes - Past Social History Smoking Status: Light Smoker < 10 Cigarettes Daily - CARDIAC Hx Hypercholesterolemia: Yes Hx Hypertension: Yes - PULMONARY Hx Chronic Obstructive Pulmonary Disease (COPD): Yes - NEUROLOGICAL Hx Alzheimer's Disease: No Hx Dementia: No Hx Migraine: No Hx Multiple Sclerosis: No Hx Parkinson's Disease: No Hx Seizures: No Hx Transient Ischemic Attacks (TIA): No - HEENT Hx HEENT Problems: No Hx Blind: No Hx Cataracts: Yes (bilateral cataract removal 15 yr ago) Hx Deafness: No Hx Difficulty Chewing: No Hx Epistaxis: No Hx Glaucoma: No Hx Macular Degeneration: No - RENAL Hx Kidney Stones: No - ENDOCRINE/METABOLIC Hx Hyperthyroidism: No Hx Hypothyroidism: No - HEMATOLOGICAL/ONCOLOGICAL Hx Human Immunodeficiency Virus (HIV): No - INTEGUMENTARY Hx Basil Cell: No Hx Shaffer: No Hx Cellulitis: No Hx Eczema: No Hx Melanoma: No Hx Psoriasis: No Hx Squamous Cell: No - MUSCULOSKELETAL/RHEUMATOLOGICAL Hx Arthritis: No Hx Fractures: No Hx Osteoporosis: No Hx Rheumatoid Arthritis: No - GASTROINTESTINAL Hx Gall Bladder Disease: Yes - GENITOURINARY/GYNECOLOGICAL Hx Sexually Transmitted Disorders: No - PSYCHIATRIC Hx Substance Use: No - SURGICAL HISTORY Hx Cholecystectomy: Yes Hx Coronary Artery Bypass Graft: Yes Meds Allergies/Adverse Reactions: Allergies Allergy/AdvReac Type Severity Reaction Status Date / Time No Known Allergies Allergy Verified 12/09/18 14:22 Physical Exam - Constitutional Appears: Well - Head Exam Head Exam: ATRAUMATIC, NORMAL INSPECTION, NORMOCEPHALIC - Eye Exam Eye Exam: EOMI, Normal appearance, PERRL Pupil Exam: NORMAL ACCOMODATION, PERRL - ENT Exam ENT Exam: Mucous Membranes Moist, Normal Exam - Neck Exam Neck exam: Positive for: Normal Inspection - Respiratory Exam Respiratory Exam: Decreased Breath Sounds - Cardiovascular Exam Cardiovascular Exam: REGULAR RHYTHM, +S1, +S2 - GI/Abdominal Exam GI & Abdominal Exam: Diminished Bowel Sounds, Soft - Rectal Exam Rectal Exam: Deferred - Neurological Exam Neurological exam: Oriented x3 Results - Vital Signs Recent Vital Signs: Last Vital Signs Temp 98.3 F 12/09/18 18:40 Pulse 83 12/09/18 19:00 Resp 14 12/09/18 19:00 BP 111/50 L 12/09/18 18:45 Pulse Ox 100 12/09/18 19:00 - Labs Result Diagrams: 12/09/18 14:54 12/09/18 14:54 Labs: Laboratory Results - last 24 hr 12/09/18 12/09/18 12/09/18 14:54 14:54 15:40 WBC 9.8 D RBC 4.86 Hgb 15.0 D Hct 44.5 MCV 91.6 MCH 30.8 MCHC 33.7 RDW 14.4 Plt Count 187 MPV 8.2 Neut % (Auto) 87.1 H Lymph % (Auto) 3.7 L [place] % (Auto) 8.6 Eos % (Auto) 0.0 Baso % (Auto) 0.6 Neut # (Auto) 8.6 H Lymph # (Auto) 0.4 L [place] # (Auto) 0.8 Eos # (Auto) 0.0 Baso # (Auto) 0.1 Neutrophils % (Manual) 86 H Lymphocytes % (Manual) 1 L Monocytes % (Manual) 13 H Platelet Estimate Normal RBC Morphology Normal Puncture Site pCO2 pO2 33 HCO3 ABG pH ABG Total CO2 ABG O2 Saturation ABG Base Excess ABG Hemoglobin ABG Carboxyhemoglobin POC ABG HHb (Measured) ABG Methemoglobin Kirk Test VBG pH 7.35 VBG pCO2 51 VBG HCO3 25.2 VBG Total CO2 29.8 H VBG O2 Sat (Calc) 63.5 VBG Base Excess 1.7 VBG Potassium 4.1 A-a O2 Difference Respiratory Index Hgb O2 Saturation Glucose 123 H Lactate 1.4 Liter Flow FiO2 Sodium 135 136.0 Potassium 4.3 Chloride 99 101.0 Carbon Dioxide 28 Anion Gap 13 BUN 12 Creatinine 0.6 L Est GFR ( Amer) > 60 Est GFR (Non-Af Amer) > 60 Random Glucose 128 H D Calcium 8.9 Total Bilirubin 0.4 AST 35 ALT 18 Alkaline Phosphatase 111 Total Protein 7.5 Albumin 4.2 Globulin 3.3 Albumin/Globulin Ratio 1.3 Venous Blood Potassium 4.1 Urine Color Urine Clarity Urine pH Ur Specific [place] Urine Protein Urine Glucose (UA) Urine Ketones Urine Blood Urine Nitrate Urine Bilirubin Urine Urobilinogen Ur Leukocyte Esterase Urine WBC (Auto) Urine RBC (Auto) Ur Squamous Epith Cells Urine Bacteria Influenza Typ A,B (EIA) 12/09/18 12/09/18 12/09/18 16:15 16:54 Unknown WBC RBC Hgb Hct MCV MCH MCHC RDW Plt Count MPV Neut % (Auto) Lymph % (Auto) [place] % (Auto) Eos % (Auto) Baso % (Auto) Neut # (Auto) Lymph # (Auto) [place] # (Auto) Eos # (Auto) Baso # (Auto) Neutrophils % (Manual) Lymphocytes % (Manual) Monocytes % (Manual) Platelet Estimate RBC Morphology Puncture Site Rra pCO2 37 pO2 52 L HCO3 24.0 ABG pH 7.41 ABG Total CO2 24.6 ABG O2 Saturation 90.6 L ABG Base Excess -0.8 ABG Hemoglobin 14.1 ABG Carboxyhemoglobin 4.9 H POC ABG HHb (Measured) 8.8 H ABG Methemoglobin 1.3 Kirk Test Pos VBG pH VBG pCO2 VBG HCO3 VBG Total CO2 VBG O2 Sat (Calc) VBG Base Excess VBG Potassium A-a O2 Difference 130.0 Respiratory Index 2.5 Hgb O2 Saturation 85.0 L Glucose Lactate Liter Flow 3.0 FiO2 32.0 Sodium Potassium Chloride Carbon Dioxide Anion Gap BUN Creatinine Est GFR ( Amer) Est GFR (Non-Af Amer) Random Glucose Calcium Total Bilirubin AST ALT Alkaline Phosphatase Total Protein Albumin Globulin Albumin/Globulin Ratio Venous Blood Potassium Urine Color Yellow Urine Clarity Clear Urine pH 5.0 Ur Specific [place] 1.020 Urine Protein 2+ H Urine Glucose (UA) Normal Urine Ketones Negative Urine Blood Negative Urine Nitrate Negative Urine Bilirubin Negative Urine Urobilinogen 2.0 H Ur Leukocyte Esterase Neg Urine WBC (Auto) 1 Urine RBC (Auto) 1 Ur Squamous Epith Cells 2 Urine Bacteria Rare Influenza Typ A,B (EIA) Negative for flu a/b
[2018-12-09] MEDS: MethylPREDNISolone 40 mg Vial IVP SCH (22:00)
[2018-12-09] MEDS: Albuterol-Ipratrop 3 mg / 0.5 (3 ml) UD INH SCH (22:56)
[2018-12-10] MEDS: Albuterol-Ipratrop 3 mg / 0.5 (3 ml) UD INH SCH ×4 (02:00→19:24)
[2018-12-10 05:45] LABS: BASO % 0.2 % (0.0-2.0); HEMOGLOBIN 13.8 g/dL (11.0-16.0); LYMPH # 0.4 K/uL (1.0-4.3); LYMPH % 4.7 % (20.0-40.0); MEAN CELL VOLUME 92.9 fL (81.0-99.0); MEAN CORPUSCULAR HEMOGLOBIN 30.8 pg (27.0-31.0); MEAN CORPUSCULAR HGB CONC 33.2 g/dL (33.0-37.0); MEAN PLATELET VOLUME 8.6 fL (7.2-11.7); MONO # 0.8 K/uL (0.0-0.8); NEUT % 86.1 % (50.0-75.0); PLATELET COUNT 169 K/uL (130-400); RBC 4.49 Mil/uL (3.80-5.20); RED CELL DISTRIBUTION WIDTH 14.2 % (11.5-14.5); WHITE BLOOD COUNT 9.3 K/uL (4.8-10.8)
[2018-12-10] MEDS: MethylPREDNISolone 40 mg Vial IVP SCH ×3 (05:56→21:59)
[2018-12-10 06:12] LABS: ALB/GLOB RATIO 1.3 (1.0-2.1); ALBUMIN 3.8 g/dL (3.5-5.0); ALT/SGPT 11 U/L (9-52); AST/SGOT 24 U/L (14-36); BLOOD UREA NITROGEN 17 mg/dL (7-17); CALCIUM 8.4 mg/dl (8.6-10.4); GFR NON-AFRICAN AMERICAN > 60
[2018-12-10 06:24] LABS: ABG ALLEN TEST POS; ARTERIAL BLOOD GAS HCO3 26.2 mmol/L (21-28); ARTERIAL BLOOD GAS HEMOGLOBIN 13.9 g/dL (11.7-17.4); ARTERIAL BLOOD GAS O2 SAT 96.9 % (95-98); ARTERIAL BLOOD GAS PCO2 48 mm/Hg (35-45); ARTERIAL BLOOD GAS PH 7.37 (7.35-7.45); ARTERIAL BLOOD GAS PO2 77 mm/Hg (80-100); ARTERIAL BLOOD GAS TCO2 29.2 mmol/L (22-28)
[2018-12-10 08:19] LABS: BANDS 27 % (0-2); LYMPHOCYTE 3 % (20-40); MONOCYTE 9 % (0-10); NEUTROPHIL 61 % (50-75); PLATELET ESTIMATE NORMAL (NORMAL); TOTAL CELLS COUNTED 100
[2018-12-10 08:20] LABS: TOXIC GRANULATION PRESENT
[2018-12-10 08:21] LABS: LARGE PLATELETS PRESENT
[2018-12-10] MEDS: Azithromycin 500 MG in Sodium Chloride 0.9% 250 ML IVPB SCH (09:16)
--- NOTE | 2018-12-10 12:13 | CARD ---
APPROVED REPORT Date of service: 12/09/2018 EKG Measurement Heart [id number] <Conclusion> Normal sinus rhythm Possible Left atrial enlargement Right bundle branch block Abnormal ECG
--- NOTE | 2018-12-10 18:47 | CP.PCM.CON ---
History of Present Illness - History of Present Illness History of Present Illness: Reason for consultation: Shortness of breath 83-year-old female with history of COPD, coronary artery disease status post CABG, peripheral vascular disease, hypertension presented to emergency room with worsening shortness of breath and cough productive of yellowish phlegm for the past 2 days. Because of worsening of symptoms patient was transferred to intensive care unit and placed on BiPAP. Patient states breathing better but still has productive cough. PMHx: COPD, CAD, PVD PSHx: CABG 2008, b/l femoropopliteal bypass, cholecystectomy Allergies: NKDA Home Meds: reviewed Family Hx: unknown Social Hx: Denies alcohol or illicit drug use. + tobacco (<10 cigarettes daily x ~60 years) Review of Systems - Review of Systems All systems: reviewed and no additional remarkable complaints except (Shortness of breath) Past Patient History - Past Medical History & Family History Past Medical History?: Yes - Past Social History Smoking Status: Light Smoker < 10 Cigarettes Daily - CARDIAC Hx Hypercholesterolemia: Yes Hx Hypertension: Yes - PULMONARY Hx Chronic Obstructive Pulmonary Disease (COPD): Yes - NEUROLOGICAL Hx Alzheimer's Disease: No Hx Dementia: No Hx Migraine: No Hx Multiple Sclerosis: No Hx Parkinson's Disease: No Hx Seizures: No Hx Transient Ischemic Attacks (TIA): No - HEENT Hx HEENT Problems: No Hx Blind: No Hx Cataracts: Yes (bilateral cataract removal 15 yr ago) Hx Deafness: No Hx Difficulty Chewing: No Hx Epistaxis: No Hx Glaucoma: No Hx Macular Degeneration: No - RENAL Hx Kidney Stones: No - ENDOCRINE/METABOLIC Hx Hyperthyroidism: No Hx Hypothyroidism: No - HEMATOLOGICAL/ONCOLOGICAL Hx Human Immunodeficiency Virus (HIV): No - INTEGUMENTARY Hx Basil Cell: No Hx Shaffer: No Hx Cellulitis: No Hx Eczema: No Hx Melanoma: No Hx Psoriasis: No Hx Squamous Cell: No - MUSCULOSKELETAL/RHEUMATOLOGICAL Hx Arthritis: No Hx Fractures: No Hx Osteoporosis: No Hx Rheumatoid Arthritis: No - GASTROINTESTINAL Hx Gall Bladder Disease: Yes - GENITOURINARY/GYNECOLOGICAL Hx Sexually Transmitted Disorders: No - PSYCHIATRIC Hx Substance Use: No - SURGICAL HISTORY Hx Cholecystectomy: Yes Hx Coronary Artery Bypass Graft: Yes - ANESTHESIA Hx Anesthesia: Yes Hx Anesthesia Reactions: No Meds Allergies/Adverse Reactions: Allergies Allergy/AdvReac Type Severity Reaction Status Date / Time No Known Allergies Allergy Verified 12/09/18 14:22 - Medications Medications: Current Medications Albuterol/Ipratropium (Duoneb 3 Mg/0.5 Mg (3 Ml) Ud) 3 ml INH RQ6 [facility] Last Admin: 12/10/18 13:00 Dose: 3 ml Aspirin (Ecotrin) 81 mg PO DAILY [facility] Last Admin: 12/10/18 09:20 Dose: 81 mg Carbamazepine (Tegretol) 200 mg PO TID [facility] Last Admin: 12/10/18 17:22 Dose: 200 mg Clopidogrel Bisulfate (Plavix) 75 mg PO DAILY [facility] Last Admin: 12/10/18 09:15 Dose: 75 mg Enalapril Maleate (Vasotec) 5 mg PO DAILY [facility] Last Admin: 12/10/18 09:15 Dose: 5 mg Heparin Sodium (Porcine) (Heparin) 5,000 units SC Q12 [facility] Last Admin: 12/10/18 09:14 Dose: 5,000 units Ceftriaxone Sodium 1 gm/ (Sodium Chloride) 100 mls @ 100 mls/hr IVPB DAILY [facility]; Protocol Last Admin: 12/10/18 09:15 Dose: 100 mls/hr Azithromycin 500 mg/ Sodium (Chloride) 250 mls @ 250 mls/hr IVPB DAILY [facility]; Protocol Last Admin: 12/10/18 09:16 Dose: 250 mls/hr Methylprednisolone (Solu-Medrol) 40 mg IVP Q8 [facility] Last Admin: 12/10/18 14:42 Dose: 40 mg Metoprolol Tartrate (Lopressor) 50 mg PO BID [facility] Last Admin: 12/10/18 17:22 Dose: 50 mg Pantoprazole Sodium (Protonix Inj) 40 mg IVP DAILY [facility] Last Admin: 12/10/18 09:14 Dose: 40 mg Rosuvastatin Calcium (Crestor) 5 mg PO HS [facility] Last Admin: 12/09/18 21:59 Dose: 5 mg Physical Exam - Head Exam Head Exam: ATRAUMATIC, NORMOCEPHALIC - ENT Exam ENT Exam: Mucous Membranes Moist - Neck Exam Neck exam: Positive for: Normal Inspection - Respiratory Exam Respiratory Exam: Decreased Breath Sounds - Cardiovascular Exam Cardiovascular Exam: REGULAR RHYTHM - GI/Abdominal Exam GI & Abdominal Exam: Normal Bowel Sounds, Soft - Extremities Exam Extremities exam: Positive for: normal inspection - Neurological Exam Neurological exam: Alert, Oriented x3 Results - Vital Signs Recent Vital Signs: Last Vital Signs Temp 98.4 F 12/10/18 16:00 Pulse 74 12/10/18 18:00 Resp 18 12/10/18 18:00 BP 117/58 L 12/10/18 18:00 Pulse Ox 94 L 12/10/18 18:00 - Labs Result Diagrams: 12/10/18 05:39 12/10/18 05:39 Labs: Laboratory Results - last 24 hr 12/10/18 12/10/18 12/10/18 05:39 05:39 05:41 WBC 9.3 RBC 4.49 Hgb 13.8 Hct 41.7 MCV 92.9 MCH 30.8 MCHC 33.2 RDW 14.2 Plt Count 169 MPV 8.6 Neut % (Auto) 86.1 H Lymph % (Auto) 4.7 L [place] % (Auto) 9.0 Eos % (Auto) 0.0 Baso % (Auto) 0.2 Neut # (Auto) 8.0 H Lymph # (Auto) 0.4 L [place] # (Auto) 0.8 Eos # (Auto) 0.0 Baso # (Auto) 0.0 Neutrophils % (Manual) 61 Band Neutrophils % 27 H* Lymphocytes % (Manual) 3 L Monocytes % (Manual) 9 Toxic Granulation Present Platelet Estimate Normal Large Platelets Present RBC Morphology Normal Puncture Site Rr pCO2 48 H pO2 77 L HCO3 26.2 ABG pH 7.37 ABG Total CO2 29.2 H ABG O2 Saturation 96.9 ABG Base Excess 1.7 ABG Hemoglobin 13.9 ABG Carboxyhemoglobin 1.5 POC ABG HHb (Measured) 3.0 ABG Methemoglobin 1.1 Kirk Test Pos Hgb O2 Saturation 94.4 L Liter Flow 15.0 Sodium 135 Potassium 4.4 Chloride 102 Carbon Dioxide 23 Anion Gap 14 BUN 17 Creatinine 0.4 L Est GFR ( Amer) > 60 Est GFR (Non-Af Amer) > 60 Random Glucose 113 H Calcium 8.4 L Phosphorus 3.9 Magnesium 1.9 Total Bilirubin 0.3 AST 24 ALT 11 Alkaline Phosphatase 84 Total Protein 6.8 Albumin 3.8 Globulin 2.9 Albumin/Globulin Ratio 1.3 Procalcitonin 12/10/18 09:53 WBC RBC Hgb Hct MCV MCH MCHC RDW Plt Count MPV Neut % (Auto) Lymph % (Auto) [place] % (Auto) Eos % (Auto) Baso % (Auto) Neut # (Auto) Lymph # (Auto) [place] # (Auto) Eos # (Auto) Baso # (Auto) Neutrophils % (Manual) Band Neutrophils % Lymphocytes % (Manual) Monocytes % (Manual) Toxic Granulation Platelet Estimate Large Platelets RBC Morphology Puncture Site pCO2 pO2 HCO3 ABG pH ABG Total CO2 ABG O2 Saturation ABG Base Excess ABG Hemoglobin ABG Carboxyhemoglobin POC ABG HHb (Measured) ABG Methemoglobin Kirk Test Hgb O2 Saturation Liter Flow Sodium Potassium Chloride Carbon Dioxide Anion Gap BUN Creatinine Est GFR ( Amer) Est GFR (Non-Af Amer) Random Glucose Calcium Phosphorus Magnesium Total Bilirubin AST ALT Alkaline Phosphatase Total Protein Albumin Globulin Albumin/Globulin Ratio Procalcitonin 0.13 L Assessment & Plan (1) Respiratory insufficiency/failure Assessment and Plan: BiPAP as needed Continue with nebulizer treatment IV steroids Continue IV antibiotics Follow-up culture and sensitivity Mucolytic's/Mucomyst Status: Acute (2) Chr obstructive pulmonary disease w/ acute lower respiratory infxn Status: Acute
--- NOTE | 2018-12-10 19:16 | CP.PCM.PN ---
Subjective - Date & Time of Evaluation Date of Evaluation: 12/10/18 - Subjective Subjective: patient examined today no nausea no vomiting no dizziness no diarrhea no fever no shortness of breath Objective - Vital Signs/Intake and Output Vital Signs (last 24 hours): Temp Pulse Resp BP Pulse Ox 98.4 F 74 18 117/58 L 94 L 12/10/18 16:00 12/10/18 18:00 12/10/18 18:00 12/10/18 18:00 12/10/18 18:00 Intake and Output: 12/10/18 12/11/18 18:59 06:59 Intake Total 740 Output Total 300 Balance 440 - Medications Medications: Current Medications Albuterol/Ipratropium (Duoneb 3 Mg/0.5 Mg (3 Ml) Ud) 3 ml INH RQ6 [facility] Last Admin: 12/10/18 13:00 Dose: 3 ml Aspirin (Ecotrin) 81 mg PO DAILY [facility] Last Admin: 12/10/18 09:20 Dose: 81 mg Carbamazepine (Tegretol) 200 mg PO TID [facility] Last Admin: 12/10/18 17:22 Dose: 200 mg Clopidogrel Bisulfate (Plavix) 75 mg PO DAILY [facility] Last Admin: 12/10/18 09:15 Dose: 75 mg Enalapril Maleate (Vasotec) 5 mg PO DAILY [facility] Last Admin: 12/10/18 09:15 Dose: 5 mg Heparin Sodium (Porcine) (Heparin) 5,000 units SC Q12 [facility] Last Admin: 12/10/18 09:14 Dose: 5,000 units Ceftriaxone Sodium 1 gm/ (Sodium Chloride) 100 mls @ 100 mls/hr IVPB DAILY [facility]; Protocol Last Admin: 12/10/18 09:15 Dose: 100 mls/hr Azithromycin 500 mg/ Sodium (Chloride) 250 mls @ 250 mls/hr IVPB DAILY [facility]; Protocol Last Admin: 12/10/18 09:16 Dose: 250 mls/hr Methylprednisolone (Solu-Medrol) 40 mg IVP Q8 [facility] Last Admin: 12/10/18 14:42 Dose: 40 mg Metoprolol Tartrate (Lopressor) 50 mg PO BID [facility] Last Admin: 12/10/18 17:22 Dose: 50 mg Pantoprazole Sodium (Protonix Inj) 40 mg IVP DAILY [facility] Last Admin: 12/10/18 09:14 Dose: 40 mg Rosuvastatin Calcium (Crestor) 5 mg PO HS [facility] Last Admin: 12/09/18 21:59 Dose: 5 mg - Labs Labs: 12/10/18 05:39 12/10/18 05:39 - Constitutional Appears: Well - Head Exam Head Exam: ATRAUMATIC, NORMAL INSPECTION, NORMOCEPHALIC - Eye Exam Eye Exam: EOMI, Normal appearance, PERRL Pupil Exam: NORMAL ACCOMODATION, PERRL - ENT Exam ENT Exam: Mucous Membranes Moist, Normal Exam - Neck Exam Neck Exam: Full ROM, Normal Inspection. absent: Lymphadenopathy - Respiratory Exam Respiratory Exam: Decreased Breath Sounds - Cardiovascular Exam Cardiovascular Exam: REGULAR RHYTHM, +S1, +S2 - GI/Abdominal Exam GI & Abdominal Exam: Soft, Diminished Bowel Sounds - Rectal Exam Rectal Exam: Deferred - Neurological Exam Neurological Exam: Oriented x3 Assessment and Plan (1) Bronchopneumonia Status: Acute (2) Chr obstructive pulmonary disease w/ acute lower respiratory infxn Status: Acute (3) Respiratory insufficiency/failure Status: Acute (4) Sepsis Status: Acute (5) Arm laceration Status: Acute (6) Contusion of hip, right Status: Acute - Assessment and Plan (Free Text) Plan: medications reviewed plan discussed with patient moderate complexity of care labs reviewed vitals reviewed Creatinine 0.4 Glucose 113 azithromycin ceftriaxone sodium cretor duoneb ecotrin heparin lopressor plvix protoni inj solu-medrol tegretol vasotec
--- NOTE | 2018-12-11 00:01 | CP.PCM.PN ---
Subjective - Date & Time of Evaluation Date of Evaluation: 12/10/18 Time of Evaluation: 07:00 - Subjective Subjective: SEEN ON ROUNDS LESS SOB LESS FEVER CULTURES NEG THUS FAR Objective - Vital Signs/Intake and Output Vital Signs (last 24 hours): Temp Pulse Resp BP Pulse Ox 98.4 F 74 18 117/58 L 94 L 12/10/18 16:00 12/10/18 18:00 12/10/18 18:00 12/10/18 18:00 12/10/18 18:00 Intake and Output: 12/10/18 12/10/18 06:59 18:59 Intake Total 50 740 Output Total 200 300 Balance -150 440 - Medications Medications: Current Medications Albuterol/Ipratropium (Duoneb 3 Mg/0.5 Mg (3 Ml) Ud) 3 ml INH RQ6 [facility] Last Admin: 12/10/18 13:00 Dose: 3 ml Aspirin (Ecotrin) 81 mg PO DAILY [facility] Last Admin: 12/10/18 09:20 Dose: 81 mg Carbamazepine (Tegretol) 200 mg PO TID [facility] Last Admin: 12/10/18 17:22 Dose: 200 mg Clopidogrel Bisulfate (Plavix) 75 mg PO DAILY [facility] Last Admin: 12/10/18 09:15 Dose: 75 mg Enalapril Maleate (Vasotec) 5 mg PO DAILY [facility] Last Admin: 12/10/18 09:15 Dose: 5 mg Heparin Sodium (Porcine) (Heparin) 5,000 units SC Q12 [facility] Last Admin: 12/10/18 09:14 Dose: 5,000 units Ceftriaxone Sodium 1 gm/ (Sodium Chloride) 100 mls @ 100 mls/hr IVPB DAILY [facility]; Protocol Last Admin: 12/10/18 09:15 Dose: 100 mls/hr Azithromycin 500 mg/ Sodium (Chloride) 250 mls @ 250 mls/hr IVPB DAILY [facility]; Protocol Last Admin: 12/10/18 09:16 Dose: 250 mls/hr Methylprednisolone (Solu-Medrol) 40 mg IVP Q8 [facility] Last Admin: 12/10/18 14:42 Dose: 40 mg Metoprolol Tartrate (Lopressor) 50 mg PO BID [facility] Last Admin: 12/10/18 17:22 Dose: 50 mg Pantoprazole Sodium (Protonix Inj) 40 mg IVP DAILY [facility] Last Admin: 12/10/18 09:14 Dose: 40 mg Rosuvastatin Calcium (Crestor) 5 mg PO HS [facility] Last Admin: 12/09/18 21:59 Dose: 5 mg - Labs Labs: 12/10/18 05:39 12/10/18 05:39 - Constitutional Appears: No Acute Distress, Cachectic, Chronically Ill - Head Exam Head Exam: ATRAUMATIC, NORMOCEPHALIC - Eye Exam Eye Exam: PERRL. absent: Scleral icterus Pupil Exam: NORMAL ACCOMODATION - ENT Exam ENT Exam: Mucous Membranes Dry, Normal External Ear Exam - Neck Exam Neck Exam: Full ROM, Normal Inspection. absent: Lymphadenopathy - Respiratory Exam Respiratory Exam: Decreased Breath Sounds, Prolonged Expiratory Phase, Rhonchi - Cardiovascular Exam Cardiovascular Exam: Tachycardia, REGULAR RHYTHM, +S1, +S2. absent: Murmur - GI/Abdominal Exam GI & Abdominal Exam: Soft, Normal Bowel Sounds. absent: Tenderness - Rectal Exam Rectal Exam: Deferred - Extremities Exam Extremities Exam: Full ROM, Normal Capillary Refill, Normal Inspection. absent: Joint Swelling, Pedal Edema - Back Exam Back Exam: NORMAL INSPECTION - Neurological Exam Neurological Exam: Alert, Awake, CN II-XII Intact, Normal Gait, Oriented x3 - Psychiatric Exam Psychiatric exam: Normal Affect, Normal Mood - Skin Skin Exam: Dry, Intact, Normal Color, Warm Assessment and Plan (1) Chr obstructive pulmonary disease w/ acute lower respiratory infxn Status: Acute (2) Sepsis Status: Acute (3) Bronchopneumonia Status: Acute - Assessment and Plan (Free Text) Assessment: cont IV antibiotics await cultures and serologies cont bronchodilators
[2018-12-11] MEDS: Albuterol-Ipratrop 3 mg / 0.5 (3 ml) UD INH SCH ×4 (02:08→19:29)
[2018-12-11] MEDS: MethylPREDNISolone 40 mg Vial IVP SCH ×3 (05:31→21:37)
[2018-12-11 06:10] LABS: BASO % 0.1 % (0.0-2.0); HEMOGLOBIN 13.4 g/dL (11.0-16.0); LYMPH # 0.5 K/uL (1.0-4.3); LYMPH % 4.6 % (20.0-40.0); MEAN CELL VOLUME 93.7 fL (81.0-99.0); MEAN CORPUSCULAR HEMOGLOBIN 30.6 pg (27.0-31.0); MEAN CORPUSCULAR HGB CONC 32.6 g/dL (33.0-37.0); MEAN PLATELET VOLUME 8.5 fL (7.2-11.7); MONO # 0.5 K/uL (0.0-0.8); MONO % 5.6 % (0.0-10.0); NEUT # 8.8 K/uL (1.8-7.0); NEUT % 89.7 % (50.0-75.0); PLATELET COUNT 185 K/uL (130-400); RBC 4.38 Mil/uL (3.80-5.20); RED CELL DISTRIBUTION WIDTH 14.7 % (11.5-14.5); WHITE BLOOD COUNT 9.8 K/uL (4.8-10.8)
[2018-12-11 06:26] LABS: ALB/GLOB RATIO 1.1 (1.0-2.1); ALBUMIN 3.5 g/dL (3.5-5.0); ALT/SGPT 10 U/L (9-52); AST/SGOT 37 U/L (14-36); BLOOD UREA NITROGEN 20 mg/dL (7-17); CALCIUM 8.3 mg/dl (8.6-10.4); GFR NON-AFRICAN AMERICAN > 60
[2018-12-11 08:07] LABS: BANDS 23 % (0-2); LYMPHOCYTE 3 % (20-40); MONOCYTE 5 % (0-10); NEUTROPHIL 69 % (50-75); PLATELET ESTIMATE NORMAL (NORMAL); TOTAL CELLS COUNTED 100
[2018-12-11 08:08] LABS: LARGE PLATELETS PRESENT; TOXIC GRANULATION PRESENT
[2018-12-11] MEDS: Azithromycin 500 MG in Sodium Chloride 0.9% 250 ML IVPB SCH (10:50)
--- NOTE | 2018-12-11 15:31 | CP.PCM.PN ---
Subjective - Date & Time of Evaluation Date of Evaluation: 12/11/18 Time of Evaluation: 14:40 - Subjective Subjective: Patient seen and examined Breathing much better Off BiPAP Still complaining of productive cough Afebrile Objective - Vital Signs/Intake and Output Vital Signs (last 24 hours): Temp Pulse Resp BP Pulse Ox 98.4 F 85 16 128/50 L 96 12/11/18 12:00 12/11/18 12:00 12/11/18 12:00 12/11/18 12:00 12/11/18 12:00 Intake and Output: 12/11/18 12/11/18 06:59 18:59 Intake Total 150 400 Output Total 400 Balance 150 0 - Medications Medications: Current Medications Albuterol/Ipratropium (Duoneb 3 Mg/0.5 Mg (3 Ml) Ud) 3 ml INH RQ6 [facility] Last Admin: 12/11/18 14:14 Dose: 3 ml Aspirin (Ecotrin) 81 mg PO DAILY [facility] Last Admin: 12/11/18 10:47 Dose: 81 mg Carbamazepine (Tegretol) 200 mg PO TID [facility] Last Admin: 12/11/18 14:34 Dose: 200 mg Clopidogrel Bisulfate (Plavix) 75 mg PO DAILY [facility] Last Admin: 12/11/18 10:47 Dose: 75 mg Enalapril Maleate (Vasotec) 5 mg PO DAILY [facility] Last Admin: 12/11/18 10:52 Dose: 5 mg Heparin Sodium (Porcine) (Heparin) 5,000 units SC Q12 [facility] Last Admin: 12/11/18 10:47 Dose: 5,000 units Ceftriaxone Sodium 1 gm/ (Sodium Chloride) 100 mls @ 100 mls/hr IVPB DAILY [facility]; Protocol Last Admin: 12/11/18 10:49 Dose: 100 mls/hr Azithromycin 500 mg/ Sodium (Chloride) 250 mls @ 250 mls/hr IVPB DAILY [facility]; Protocol Last Admin: 12/11/18 10:50 Dose: 250 mls/hr Methylprednisolone (Solu-Medrol) 40 mg IVP Q8 [facility] Last Admin: 12/11/18 14:34 Dose: 40 mg Metoprolol Tartrate (Lopressor) 50 mg PO BID [facility] Last Admin: 12/11/18 10:49 Dose: 50 mg Pantoprazole Sodium (Protonix Inj) 40 mg IVP DAILY [facility] Last Admin: 12/11/18 10:48 Dose: 40 mg Rosuvastatin Calcium (Crestor) 5 mg PO HS [facility] Last Admin: 12/10/18 21:59 Dose: 5 mg - Labs Labs: 12/11/18 06:03 12/11/18 06:03 - Head Exam Head Exam: ATRAUMATIC, NORMOCEPHALIC - ENT Exam ENT Exam: Mucous Membranes Moist - Neck Exam Neck Exam: Normal Inspection - Respiratory Exam Respiratory Exam: Decreased Breath Sounds - Cardiovascular Exam Cardiovascular Exam: REGULAR RHYTHM - GI/Abdominal Exam GI & Abdominal Exam: Soft, Normal Bowel Sounds - Extremities Exam Extremities Exam: Full ROM, Normal Inspection - Neurological Exam Neurological Exam: Alert, Oriented x3 Assessment and Plan (1) Respiratory insufficiency/failure Assessment & Plan: Continue BiPAP as needed Continue with IV steroids Nebulizer treatment Antibiotics Status: Acute (2) Chr obstructive pulmonary disease w/ acute lower respiratory infxn Status: Acute
--- NOTE | 2018-12-11 16:02 | CP.PCM.PN ---
Subjective - Date & Time of Evaluation Date of Evaluation: 12/11/18 Time of Evaluation: 07:00 - Subjective Subjective: remains short of breath but less cough and fever awake alert off BiPaP cultures all negative thus far Objective - Vital Signs/Intake and Output Vital Signs (last 24 hours): Temp Pulse Resp BP Pulse Ox 98.4 F 85 16 128/50 L 96 12/11/18 12:00 12/11/18 12:00 12/11/18 12:00 12/11/18 12:00 12/11/18 12:00 Intake and Output: 12/11/18 12/11/18 06:59 18:59 Intake Total 150 400 Output Total 400 Balance 150 0 - Medications Medications: Current Medications Albuterol/Ipratropium (Duoneb 3 Mg/0.5 Mg (3 Ml) Ud) 3 ml INH RQ6 [facility] Last Admin: 12/11/18 14:14 Dose: 3 ml Aspirin (Ecotrin) 81 mg PO DAILY [facility] Last Admin: 12/11/18 10:47 Dose: 81 mg Carbamazepine (Tegretol) 200 mg PO TID [facility] Last Admin: 12/11/18 14:34 Dose: 200 mg Clopidogrel Bisulfate (Plavix) 75 mg PO DAILY [facility] Last Admin: 12/11/18 10:47 Dose: 75 mg Enalapril Maleate (Vasotec) 5 mg PO DAILY [facility] Last Admin: 12/11/18 10:52 Dose: 5 mg Heparin Sodium (Porcine) (Heparin) 5,000 units SC Q12 [facility] Last Admin: 12/11/18 10:47 Dose: 5,000 units Ceftriaxone Sodium 1 gm/ (Sodium Chloride) 100 mls @ 100 mls/hr IVPB DAILY [facility]; Protocol Last Admin: 12/11/18 10:49 Dose: 100 mls/hr Azithromycin 500 mg/ Sodium (Chloride) 250 mls @ 250 mls/hr IVPB DAILY [facility]; Protocol Last Admin: 12/11/18 10:50 Dose: 250 mls/hr Methylprednisolone (Solu-Medrol) 40 mg IVP Q8 [facility] Last Admin: 12/11/18 14:34 Dose: 40 mg Metoprolol Tartrate (Lopressor) 50 mg PO BID [facility] Last Admin: 12/11/18 10:49 Dose: 50 mg Pantoprazole Sodium (Protonix Inj) 40 mg IVP DAILY [facility] Last Admin: 12/11/18 10:48 Dose: 40 mg Rosuvastatin Calcium (Crestor) 5 mg PO HS [facility] Last Admin: 12/10/18 21:59 Dose: 5 mg - Labs Labs: 12/11/18 06:03 12/11/18 06:03 - Constitutional Appears: No Acute Distress, Cachectic, Chronically Ill - Head Exam Head Exam: ATRAUMATIC, NORMAL INSPECTION, NORMOCEPHALIC - Eye Exam Eye Exam: EOMI, Normal appearance, PERRL Pupil Exam: NORMAL ACCOMODATION, PERRL - ENT Exam ENT Exam: Mucous Membranes Moist, Normal Exam - Neck Exam Neck Exam: Full ROM, Normal Inspection. absent: Lymphadenopathy - Respiratory Exam Respiratory Exam: Decreased Breath Sounds, Prolonged Expiratory Phase, Rhonchi - Cardiovascular Exam Cardiovascular Exam: REGULAR RHYTHM, +S1, +S2. absent: Murmur - GI/Abdominal Exam GI & Abdominal Exam: Soft, Normal Bowel Sounds. absent: Tenderness - Rectal Exam Rectal Exam: NORMAL INSPECTION - Exam Exam: Circumcision, NORMAL INSPECTION External exam: NORMAL EXTERNAL EXAM Speculum exam: NORMAL SPECULUM EXAM Bimanual exam: NORMAL BIMANUAL EXAM - Extremities Exam Extremities Exam: Full ROM, Normal Capillary Refill, Normal Inspection. absent: Joint Swelling, Pedal Edema - Back Exam Back Exam: NORMAL INSPECTION - Neurological Exam Neurological Exam: Alert, Awake, CN II-XII Intact, Normal Gait, Oriented x3 - Psychiatric Exam Psychiatric exam: Depressed - Skin Skin Exam: Dry, Intact, Normal Color, Warm Assessment and Plan (1) Chr obstructive pulmonary disease w/ acute lower respiratory infxn Status: Acute (2) Sepsis Status: Acute (3) Bronchopneumonia Status: Acute - Assessment and Plan (Free Text) Assessment: cont same IV antibiotics for 7 days min follow up CXR
--- NOTE | 2018-12-11 23:13 | CP.PCM.PN ---
Subjective - Date & Time of Evaluation Date of Evaluation: 12/11/18 - Subjective Subjective: patient seen today no nausea, no vomiting, no diarrhea, no dizziness, no fever no shortness of breath Objective - Vital Signs/Intake and Output Vital Signs (last 24 hours): Temp Pulse Resp BP Pulse Ox 98.3 F 76 18 109/48 L 94 L 12/11/18 20:00 12/11/18 20:00 12/11/18 20:00 12/11/18 20:00 12/11/18 20:00 Intake and Output: 12/11/18 12/12/18 18:59 06:59 Intake Total 1250 Output Total 1000 Balance 250 - Medications Medications: Current Medications Albuterol/Ipratropium (Duoneb 3 Mg/0.5 Mg (3 Ml) Ud) 3 ml INH RQ6 [facility] Last Admin: 12/11/18 19:29 Dose: 3 ml Aspirin (Ecotrin) 81 mg PO DAILY [facility] Last Admin: 12/11/18 10:47 Dose: 81 mg Carbamazepine (Tegretol) 200 mg PO TID [facility] Last Admin: 12/11/18 18:27 Dose: 200 mg Clopidogrel Bisulfate (Plavix) 75 mg PO DAILY [facility] Last Admin: 12/11/18 10:47 Dose: 75 mg Enalapril Maleate (Vasotec) 5 mg PO DAILY [facility] Last Admin: 12/11/18 10:52 Dose: 5 mg Heparin Sodium (Porcine) (Heparin) 5,000 units SC Q12 [facility] Last Admin: 12/11/18 21:35 Dose: 5,000 units Ceftriaxone Sodium 1 gm/ (Sodium Chloride) 100 mls @ 100 mls/hr IVPB DAILY [facility]; Protocol Last Admin: 12/11/18 10:49 Dose: 100 mls/hr Azithromycin 500 mg/ Sodium (Chloride) 250 mls @ 250 mls/hr IVPB DAILY [facility]; Protocol Last Admin: 12/11/18 10:50 Dose: 250 mls/hr Methylprednisolone (Solu-Medrol) 40 mg IVP Q8 [facility] Last Admin: 12/11/18 21:37 Dose: 40 mg Metoprolol Tartrate (Lopressor) 50 mg PO BID [facility] Last Admin: 12/11/18 18:27 Dose: 50 mg Pantoprazole Sodium (Protonix Inj) 40 mg IVP DAILY [facility] Last Admin: 12/11/18 10:48 Dose: 40 mg Rosuvastatin Calcium (Crestor) 5 mg PO HS [facility] Last Admin: 12/11/18 21:35 Dose: 5 mg - Labs Labs: 12/11/18 06:03 12/11/18 06:03 - Constitutional Appears: Well - Head Exam Head Exam: ATRAUMATIC, NORMAL INSPECTION, NORMOCEPHALIC - Eye Exam Eye Exam: EOMI, Normal appearance, PERRL Pupil Exam: NORMAL ACCOMODATION, PERRL - ENT Exam ENT Exam: Mucous Membranes Moist, Normal Exam - Neck Exam Neck Exam: Full ROM, Normal Inspection. absent: Lymphadenopathy - Respiratory Exam Respiratory Exam: Decreased Breath Sounds - Cardiovascular Exam Cardiovascular Exam: REGULAR RHYTHM, +S1, +S2 - GI/Abdominal Exam GI & Abdominal Exam: Soft, Diminished Bowel Sounds - Rectal Exam Rectal Exam: Deferred - Neurological Exam Neurological Exam: Oriented x3 Assessment and Plan (1) Bronchopneumonia Status: Acute (2) Chr obstructive pulmonary disease w/ acute lower respiratory infxn Status: Acute (3) Respiratory insufficiency/failure Status: Acute (4) Sepsis Status: Acute (5) Arm laceration Status: Acute (6) Contusion of hip, right Status: Acute - Assessment and Plan (Free Text) Plan: plan discussed with patient moderate complexity of care BUN 20 Creatinine 0.6 Glucose 107 Potassium 5.5 azithromycin ceftriaxone sodium crestor duoneb ecotrin heparin lopressor plavix protonix inj solu-medrol tegretol vasotec medications reviewed vitals reviewed labs reviewed
[2018-12-12] MEDS: Albuterol-Ipratrop 3 mg / 0.5 (3 ml) UD INH SCH ×4 (01:46→21:13)
[2018-12-12] MEDS: MethylPREDNISolone 40 mg Vial IVP SCH ×3 (05:51→21:51)
[2018-12-12 06:26] LABS: BASO % 0.1 % (0.0-2.0); HEMOGLOBIN 12.9 g/dL (11.0-16.0); LYMPH # 0.5 K/uL (1.0-4.3); LYMPH % 4.9 % (20.0-40.0); MEAN CELL VOLUME 93.2 fL (81.0-99.0); MEAN CORPUSCULAR HEMOGLOBIN 30.8 pg (27.0-31.0); MEAN CORPUSCULAR HGB CONC 33.1 g/dL (33.0-37.0); MEAN PLATELET VOLUME 8.2 fL (7.2-11.7); MONO # 0.5 K/uL (0.0-0.8); MONO % 5.2 % (0.0-10.0); NEUT # 8.5 K/uL (1.8-7.0); NEUT % 89.8 % (50.0-75.0); PLATELET COUNT 201 K/uL (130-400); RBC 4.18 Mil/uL (3.80-5.20); RED CELL DISTRIBUTION WIDTH 14.3 % (11.5-14.5); WHITE BLOOD COUNT 9.4 K/uL (4.8-10.8)
[2018-12-12 06:50] LABS: ALB/GLOB RATIO 1.1 (1.0-2.1); ALBUMIN 3.3 g/dL (3.5-5.0); ALT/SGPT 21 U/L (9-52); AST/SGOT 29 U/L (14-36); BLOOD UREA NITROGEN 16 mg/dL (7-17); CALCIUM 8.5 mg/dl (8.6-10.4); GFR NON-AFRICAN AMERICAN > 60
[2018-12-12 08:48] LABS: LYMPHOCYTE 4 % (20-40); MONOCYTE 5 % (0-10); TOTAL CELLS COUNTED 100
[2018-12-12 08:50] LABS: BANDS 5 % (0-2); NEUTROPHIL 86 % (50-75)
[2018-12-12 08:51] LABS: PLATELET ESTIMATE NORMAL (NORMAL)
[2018-12-12] MEDS: Azithromycin 500 MG in Sodium Chloride 0.9% 250 ML IVPB SCH (10:14)
--- NOTE | 2018-12-12 12:07 | CP.PCM.PN ---
Subjective - Date & Time of Evaluation Date of Evaluation: 12/12/18 Time of Evaluation: 11:40 - Subjective Subjective: Patient seen and examined Cough and shortness of breath improving Afebrile Patient is awake and responsive Fair appetite Objective - Vital Signs/Intake and Output Vital Signs (last 24 hours): Temp Pulse Resp BP Pulse Ox 98.3 F 76 18 130/52 L 92 L 12/11/18 20:00 12/11/18 20:00 12/11/18 20:00 12/12/18 10:13 12/12/18 00:21 Intake and Output: 12/12/18 12/12/18 06:59 18:59 Intake Total 240 Output Total 600 Balance -360 - Medications Medications: Current Medications Albuterol/Ipratropium (Duoneb 3 Mg/0.5 Mg (3 Ml) Ud) 3 ml INH RQ6 [facility] Last Admin: 12/12/18 07:41 Dose: 3 ml Aspirin (Ecotrin) 81 mg PO DAILY [facility] Last Admin: 12/12/18 10:16 Dose: 81 mg Carbamazepine (Tegretol) 200 mg PO TID [facility] Last Admin: 12/12/18 10:14 Dose: 200 mg Clopidogrel Bisulfate (Plavix) 75 mg PO DAILY [facility] Last Admin: 12/12/18 10:13 Dose: 75 mg Enalapril Maleate (Vasotec) 5 mg PO DAILY [facility] Last Admin: 12/12/18 10:13 Dose: 5 mg Heparin Sodium (Porcine) (Heparin) 5,000 units SC Q12 [facility] Last Admin: 12/12/18 10:13 Dose: 5,000 units Ceftriaxone Sodium 1 gm/ (Sodium Chloride) 100 mls @ 100 mls/hr IVPB DAILY [facility]; Protocol Last Admin: 12/12/18 10:14 Dose: 100 mls/hr Azithromycin 500 mg/ Sodium (Chloride) 250 mls @ 250 mls/hr IVPB DAILY [facility]; Protocol Last Admin: 12/12/18 10:14 Dose: 250 mls/hr Methylprednisolone (Solu-Medrol) 40 mg IVP Q8 [facility] Last Admin: 12/12/18 05:51 Dose: 40 mg Metoprolol Tartrate (Lopressor) 50 mg PO BID [facility] Last Admin: 12/12/18 10:13 Dose: 50 mg Pantoprazole Sodium (Protonix Inj) 40 mg IVP DAILY [facility] Last Admin: 12/12/18 10:13 Dose: 40 mg Rosuvastatin Calcium (Crestor) 5 mg PO HS [facility] Last Admin: 12/11/18 21:35 Dose: 5 mg - Labs Labs: 12/12/18 06:21 12/12/18 06:21 - Head Exam Head Exam: ATRAUMATIC, NORMOCEPHALIC - ENT Exam ENT Exam: Mucous Membranes Moist - Neck Exam Neck Exam: Normal Inspection - Respiratory Exam Respiratory Exam: Decreased Breath Sounds - Cardiovascular Exam Cardiovascular Exam: REGULAR RHYTHM - GI/Abdominal Exam GI & Abdominal Exam: Soft, Normal Bowel Sounds - Extremities Exam Extremities Exam: Normal Inspection - Neurological Exam Neurological Exam: Alert, Oriented x3 Assessment and Plan (1) Respiratory insufficiency/failure Assessment & Plan: Continue with the present treatment Physical therapy Nebulizer treatment antibiotics and steroids Mucolytic's Status: Acute (2) Chr obstructive pulmonary disease w/ acute lower respiratory infxn Status: Acute
[2018-12-12] MEDS ORDERED: Metoprolol 1 mg/ml Inj IVP ONE (20:55)
--- NOTE | 2018-12-12 23:20 | CP.PCM.PN ---
Subjective - Date & Time of Evaluation Date of Evaluation: 12/12/18 - Subjective Subjective: no c/o vomiting, no diarrhea, no fever Objective - Vital Signs/Intake and Output Vital Signs (last 24 hours): Temp Pulse Resp BP Pulse Ox 98 F 70 18 168/70 H 90 L 12/12/18 16:00 12/12/18 16:00 12/12/18 16:00 12/12/18 22:33 12/12/18 16:00 - Medications Medications: Current Medications Albuterol/Ipratropium (Duoneb 3 Mg/0.5 Mg (3 Ml) Ud) 3 ml INH RQ6 [facility] Last Admin: 12/12/18 21:13 Dose: 3 ml Aspirin (Ecotrin) 81 mg PO DAILY [facility] Last Admin: 12/12/18 10:16 Dose: 81 mg Carbamazepine (Tegretol) 200 mg PO TID [facility] Last Admin: 12/12/18 17:08 Dose: 200 mg Clopidogrel Bisulfate (Plavix) 75 mg PO DAILY [facility] Last Admin: 12/12/18 10:13 Dose: 75 mg Enalapril Maleate (Vasotec) 5 mg PO DAILY [facility] Last Admin: 12/12/18 10:13 Dose: 5 mg Ceftriaxone Sodium 1 gm/ (Sodium Chloride) 100 mls @ 100 mls/hr IVPB DAILY [facility]; Protocol Last Admin: 12/12/18 10:14 Dose: 100 mls/hr Azithromycin 500 mg/ Sodium (Chloride) 250 mls @ 250 mls/hr IVPB DAILY [facility]; P rotocol Last Admin: 12/12/18 10:14 Dose: 250 mls/hr Methylprednisolone (Solu-Medrol) 40 mg IVP Q8 [facility] Last Admin: 12/12/18 21:51 Dose: 40 mg Metoprolol Tartrate (Lopressor) 50 mg PO BID [facility] Last Admin: 12/12/18 17:08 Dose: 50 mg Pantoprazole Sodium (Protonix Inj) 40 mg IVP DAILY [facility] Last Admin: 12/12/18 10:13 Dose: 40 mg Rosuvastatin Calcium (Crestor) 5 mg PO HS [facility] Last Admin: 12/12/18 21:58 Dose: Not Given - Labs Labs: 12/12/18 06:21 12/12/18 06:21 Assessment and Plan (1) Bronchopneumonia Status: Acute (2) Chr obstructive pulmonary disease w/ acute lower respiratory infxn Status: Acute (3) Respiratory insufficiency/failure Status: Acute (4) Sepsis Status: Acute (5) Arm laceration Status: Acute (6) Contusion of hip, right Status: Acute - Assessment and Plan (Free Text) Plan: Glucose 108 Creatinine 0.6 DuoNeb Ecotrin Tegretol Plavix Vasotec Ceftriaxone Azithromycin Solu-Medrol Lopressor Protonix Crestor Moderate to high complexity of care. Plan of care discussed with patient &/or family & staff. Medications reviewed and reconciled. Labs reviewed. Vitals reviewed.
[2018-12-13] MEDS: Albuterol-Ipratrop 3 mg / 0.5 (3 ml) UD INH SCH ×4 (01:53→21:40)
[2018-12-13] MEDS: MethylPREDNISolone 40 mg Vial IVP SCH ×3 (06:23→22:03)
[2018-12-13 08:18] LABS: BASO % 0.1 % (0.0-2.0); HEMOGLOBIN 14.7 g/dL (11.0-16.0); LYMPH # 0.5 K/uL (1.0-4.3); LYMPH % 5.6 % (20.0-40.0); MEAN CELL VOLUME 91.7 fL (81.0-99.0); MEAN CORPUSCULAR HEMOGLOBIN 31.2 pg (27.0-31.0); MEAN PLATELET VOLUME 8.2 fL (7.2-11.7); MONO # 0.7 K/uL (0.0-0.8); MONO % 8.1 % (0.0-10.0); NEUT # 7.9 K/uL (1.8-7.0); NEUT % 86.2 % (50.0-75.0); PLATELET COUNT 231 K/uL (130-400); RBC 4.71 Mil/uL (3.80-5.20); RED CELL DISTRIBUTION WIDTH 14.1 % (11.5-14.5); WHITE BLOOD COUNT 9.2 K/uL (4.8-10.8)
[2018-12-13 08:38] LABS: ALB/GLOB RATIO 1.2 (1.0-2.1); ALBUMIN 3.9 g/dL (3.5-5.0); ALT/SGPT 31 U/L (9-52); AST/SGOT 48 U/L (14-36); BLOOD UREA NITROGEN 16 mg/dL (7-17); CALCIUM 8.8 mg/dl (8.6-10.4); GFR NON-AFRICAN AMERICAN > 60
--- NOTE | 2018-12-13 09:46 | RAD ---
HISTORY: SOB COMPARISON: Chest x-ray performed 12/09/18 TECHNIQUE: Chest, one view. FINDINGS: LUNGS: Hyperinflation may be seen in the setting of COPD. Left lower lobe pleural effusion and/or consolidation. No definite pneumothorax . Please note that chest x-ray has limited sensitivity for the detection of pulmonary masses. CARDIOVASCULAR: Median sternotomy wires. Cardiomediastinal silhouette stable. Cardiomegaly. Atherosclerotic calcifications present. OSSEOUS STRUCTURES: Degenerative changes. VISUALIZED UPPER ABDOMEN: Unremarkable. OTHER FINDINGS: None. IMPRESSION: Hyperinflation may be seen in the setting of COPD. Left lower lobe pleural effusion and/or consolidation. Median sternotomy wires. Stable cardiomediastinal silhouette. Cardiomegaly. Atherosclerotic calcifications present.
[2018-12-13] MEDS: Azithromycin 500 MG in Sodium Chloride 0.9% 250 ML IVPB SCH (10:40)
[2018-12-13 11:00] LABS: BANDS 2 % (0-2); LYMPHOCYTE 5 % (20-40); MONOCYTE 8 % (0-10); NEUTROPHIL 85 % (50-75); TOTAL CELLS COUNTED 100
[2018-12-13 11:01] LABS: ANISOCYTOSIS SLIGHT; PLATELET ESTIMATE NORMAL (NORMAL); TOXIC GRANULATION PRESENT
--- NOTE | 2018-12-13 11:07 | CP.PCM.PN ---
Subjective - Date & Time of Evaluation Date of Evaluation: 12/13/18 - Subjective Subjective: no c/o vomiting, no diarrhea, no fever Objective - Vital Signs/Intake and Output Vital Signs (last 24 hours): Temp Pulse Resp BP Pulse Ox 98.2 F 86 20 129/64 95 12/13/18 08:08 12/13/18 08:08 12/13/18 08:08 12/13/18 10:39 12/13/18 08:08 - Medications Medications: Current Medications Albuterol/Ipratropium (Duoneb 3 Mg/0.5 Mg (3 Ml) Ud) 3 ml INH RQ6 [facility] Last Admin: 12/13/18 08:55 Dose: 3 ml Aspirin (Ecotrin) 81 mg PO DAILY [facility] Last Admin: 12/13/18 10:39 Dose: 81 mg Carbamazepine (Tegretol) 200 mg PO TID [facility] Last Admin: 12/13/18 10:58 Dose: 200 mg Clopidogrel Bisulfate (Plavix) 75 mg PO DAILY [facility] Last Admin: 12/13/18 10:39 Dose: 75 mg Enalapril Maleate (Vasotec) 5 mg PO DAILY [facility] Last Admin: 12/13/18 10:39 Dose: 5 mg Ceftriaxone Sodium 1 gm/ (Sodium Chloride) 100 mls @ 100 mls/hr IVPB DAILY [facility]; Protocol Last Admin: 12/13/18 10:00 Dose: 100 mls/hr Azithromycin 500 mg/ Sodium (Chloride) 250 mls @ 250 mls/hr IVPB DAILY [facility]; P rotocol Last Admin: 12/13/18 10:40 Dose: 250 mls/hr Methylprednisolone (Solu-Medrol) 40 mg IVP Q8 [facility] Last Admin: 12/13/18 06:23 Dose: 40 mg Metoprolol Tartrate (Lopressor) 50 mg PO BID [facility] Last Admin: 12/13/18 10:38 Dose: 50 mg Pantoprazole Sodium (Protonix Inj) 40 mg IVP DAILY [facility] Last Admin: 12/13/18 10:40 Dose: 40 mg Rosuvastatin Calcium (Crestor) 5 mg PO HS [facility] Last Admin: 12/12/18 21:58 Dose: Not Given - Labs Labs: 12/13/18 08:09 12/13/18 08:09 Assessment and Plan (1) Bronchopneumonia Status: Acute (2) Chr obstructive pulmonary disease w/ acute lower respiratory infxn Status: Acute (3) Respiratory insufficiency/failure Status: Acute (4) Sepsis Status: Acute (5) Arm laceration Status: Acute (6) Contusion of hip, right Status: Acute - Assessment and Plan (Free Text) Plan: Glucose 109 DuoNeb Ecotrin Tegretol Plavix Vasotec Ceftriaxone Azithromycin Solu-Medrol Lopressor Protonix Crestor Moderate to high complexity of care. Plan of care discussed with patient &/or family & staff. Medications reviewed and reconciled. Labs reviewed. Vitals reviewed.
--- NOTE | 2018-12-13 15:03 | CP.PCM.PN ---
Subjective - Date & Time of Evaluation Date of Evaluation: 12/13/18 Time of Evaluation: 07:00 - Subjective Subjective: seen on rounds no new complaints orders written IV rx renewed Objective - Vital Signs/Intake and Output Vital Signs (last 24 hours): Temp Pulse Resp BP Pulse Ox 98.2 F 86 20 129/64 95 12/13/18 08:08 12/13/18 08:08 12/13/18 08:08 12/13/18 10:39 12/13/18 08:08 - Medications Medications: Current Medications Albuterol/Ipratropium (Duoneb 3 Mg/0.5 Mg (3 Ml) Ud) 3 ml INH RQ6 [facility] Last Admin: 12/13/18 13:26 Dose: 3 ml Aspirin (Ecotrin) 81 mg PO DAILY [facility] Last Admin: 12/13/18 10:39 Dose: 81 mg Carbamazepine (Tegretol) 200 mg PO TID [facility] Last Admin: 12/13/18 14:58 Dose: 200 mg Clopidogrel Bisulfate (Plavix) 75 mg PO DAILY [facility] Last Admin: 12/13/18 10:39 Dose: 75 mg Enalapril Maleate (Vasotec) 5 mg PO DAILY [facility] Last Admin: 12/13/18 10:39 Dose: 5 mg Ceftriaxone Sodium 1 gm/ (Sodium Chloride) 100 mls @ 100 mls/hr IVPB DAILY [facility]; Protocol Last Admin: 12/13/18 10:00 Dose: 100 mls/hr Azithromycin 500 mg/ Sodium (Chloride) 250 mls @ 250 mls/hr IVPB DAILY [facility]; Protocol Last Admin: 12/13/18 10:40 Dose: 250 mls/hr Methylprednisolone (Solu-Medrol) 40 mg IVP Q8 [facility] Last Admin: 12/13/18 14:58 Dose: 40 mg Metoprolol Tartrate (Lopressor) 50 mg PO BID [facility] Last Admin: 12/13/18 10:38 Dose: 50 mg Pantoprazole Sodium (Protonix Inj) 40 mg IVP DAILY [facility] Last Admin: 12/13/18 10:40 Dose: 40 mg Rosuvastatin Calcium (Crestor) 5 mg PO HS [facility] Last Admin: 12/12/18 21:58 Dose: Not Given - Labs Labs: 12/13/18 08:09 12/13/18 08:09 - Constitutional Appears: Non-toxic, Cachectic, Chronically Ill - Head Exam Head Exam: ATRAUMATIC, NORMAL INSPECTION, NORMOCEPHALIC - Eye Exam Eye Exam: EOMI, Normal appearance, PERRL Pupil Exam: NORMAL ACCOMODATION, PERRL - ENT Exam ENT Exam: Mucous Membranes Moist, Normal Exam - Neck Exam Neck Exam: Full ROM, Normal Inspection. absent: Lymphadenopathy - Respiratory Exam Respiratory Exam: Clear to Ausculation Bilateral, NORMAL BREATHING PATTERN - Cardiovascular Exam Cardiovascular Exam: REGULAR RHYTHM, +S1, +S2. absent: Murmur - GI/Abdominal Exam GI & Abdominal Exam: Soft, Normal Bowel Sounds. absent: Tenderness - Rectal Exam Rectal Exam: Deferred - Exam Exam: NORMAL INSPECTION - Extremities Exam Extremities Exam: Full ROM, Normal Capillary Refill, Normal Inspection. absent: Joint Swelling, Pedal Edema - Back Exam Back Exam: NORMAL INSPECTION - Neurological Exam Neurological Exam: Alert, Awake, CN II-XII Intact, Oriented x3 - Psychiatric Exam Psychiatric exam: Depressed - Skin Skin Exam: Dry, Intact, Normal Color, Warm Assessment and Plan (1) Chr obstructive pulmonary disease w/ acute lower respiratory infxn Status: Acute (2) Sepsis Status: Acute (3) Bronchopneumonia Status: Acute - Assessment and Plan (Free Text) Assessment: all cultures negative d/c on PO rx follow uo with PMD
[2018-12-14 00:55] VITALS: RESP 20; O2SAT 92
[2018-12-14] MEDS: MethylPREDNISolone 40 mg Vial IVP SCH (06:01)
[2018-12-14 08:00] VITALS: BP 157/81; PULSE 72; TEMP 97.4
[2018-12-14] MEDS: Azithromycin 500 MG in Sodium Chloride 0.9% 250 ML IVPB SCH (09:27)
[2018-12-14] MEDS: Albuterol-Ipratrop 3 mg / 0.5 (3 ml) UD INH SCH (09:34)
--- NOTE | 2018-12-14 17:55 | CP.PCM.PN ---
Subjective - Date & Time of Evaluation Date of Evaluation: 12/14/18 Time of Evaluation: 11:00 - Subjective Subjective: Patient seen and examined Sitting comfortably in no distress Wants to go home Awake and responsive Refusing home oxygen P.o. prednisone Nebulizer treatment Follow-up in the office Objective - Vital Signs/Intake and Output Vital Signs (last 24 hours): Temp Pulse Resp BP Pulse Ox 97.4 F L 72 20 157/81 H 92 L 12/14/18 07:54 12/14/18 07:54 12/14/18 07:54 12/14/18 09:11 12/14/18 00:00 Intake and Output: 12/14/18 12/14/18 06:59 18:59 Intake Total 350 640 Balance 350 640 - Labs Labs: 12/13/18 08:09 12/13/18 08:09 Assessment and Plan (1) Respiratory insufficiency/failure Status: Acute (2) Chr obstructive pulmonary disease w/ acute lower respiratory infxn Status: Acute
[2018-12-14] MEDS ORDERED: MethylPREDNISolone 40 mg Vial IVP SCH (18:00)
--- NOTE | 2018-12-14 22:48 | CP.PCM.DIS ---
Provider - Provider Date of Admission: 12/09/18 18:54 Attending physician: Barbara Martin MD Consults: 12/09/18 17:37 Infectious Disease Consult Routine Comment: Consulting Provider: Alphonso Cary Consulting Physician: Alphonso Cary Reason for Consult: sepsis 12/09/18 18:11 Pulmonology Consult Routine Comment: Consulting Provider: Sergei Simms Consulting Physician: Sergei Simms Reason for Consult: COPD 12/09/18 21:03 Physician Consult Routine Comment: Consulting Provider: Sergei Simms Consulting Physician: Sergei Simms Reason for Consult: sob/copd Time Spent in preparation of Discharge (in minutes): 30 Diagnosis - Discharge Diagnosis (1) Bronchopneumonia Status: Acute (2) Chr obstructive pulmonary disease w/ acute lower respiratory infxn Status: Acute (3) Respiratory insufficiency/failure Status: Acute (4) Sepsis Status: Acute (5) Arm laceration Status: Acute (6) Contusion of hip, right Status: Acute Hospital Course - Lab Results Lab Results: Micro Results 12/10/18 01:51 Blood-Venous Blood Culture - Preliminary NO GROWTH AFTER 4 DAYS 12/10/18 01:51 Blood-Venous Blood Culture - Preliminary NO GROWTH AFTER 4 DAYS 12/09/18 20:46 Naris MRSA Culture (Admit) - Final MRSA NOT DETECTED 12/09/18 16:54 Urine,Clean Catch Urine Culture - Final No Growth (<1,000 CFU/ML) Most Recent Lab Values WBC 9.2 K/uL (4.8-10.8) 12/13/18 08:09 RBC 4.71 Mil/uL (3.80-5.20) 12/13/18 08:09 Hgb 14.7 g/dL (11.0-16.0) 12/13/18 08:09 Hct 43.2 % (34.0-47.0) 12/13/18 08:09 MCV 91.7 fL (81.0-99.0) 12/13/18 08:09 MCH 31.2 pg (27.0-31.0) H 12/13/18 08:09 MCHC 34.0 g/dL (33.0-37.0) 12/13/18 08:09 RDW 14.1 % (11.5-14.5) 12/13/18 08:09 Plt Count 231 K/uL (130-400) 12/13/18 08:09 MPV 8.2 fL (7.2-11.7) 12/13/18 08:09 Neut % (Auto) 86.2 % (50.0-75.0) H 12/13/18 08:09 Lymph % (Auto) 5.6 % (20.0-40.0) L 12/13/18 08:09 [place] % (Auto) 8.1 % (0.0-10.0) 12/13/18 08:09 Eos % (Auto) 0.0 % (0.0-4.0) 12/13/18 08:09 Baso % (Auto) 0.1 % (0.0-2.0) 12/13/18 08:09 Neut # (Auto) 7.9 K/uL (1.8-7.0) H 12/13/18 08:09 Lymph # (Auto) 0.5 K/uL (1.0-4.3) L 12/13/18 08:09 [place] # (Auto) 0.7 K/uL (0.0-0.8) 12/13/18 08:09 Eos # (Auto) 0.0 K/uL (0.0-0.7) 12/13/18 08:09 Baso # (Auto) 0.0 K/uL (0.0-0.2) 12/13/18 08:09 Neutrophils % (Manual) 85 % (50-75) H 12/13/18 08:09 Band Neutrophils % 2 % (0-2) 12/13/18 08:09 Lymphocytes % (Manual) 5 % (20-40) L 12/13/18 08:09 Monocytes % (Manual) 8 % (0-10) 12/13/18 08:09 Toxic Granulation Present 12/13/18 08:09 Platelet Estimate Normal (NORMAL) 12/13/18 08:09 Large Platelets Present 12/11/18 06:03 RBC Morphology Normal 12/12/18 06:21 Anisocytosis (manual) Slight 12/13/18 08:09 Puncture Site Rr 12/10/18 05:41 pCO2 48 mm/Hg (35-45) H 12/10/18 05:41 pO2 77 mm/Hg (80-100) L 12/10/18 05:41 HCO3 26.2 mmol/L (21-28) 12/10/18 05:41 ABG pH 7.37 (7.35-7.45) 12/10/18 05:41 ABG Total CO2 29.2 mmol/L (22-28) H 12/10/18 05:41 ABG O2 Saturation 96.9 % (95-98) 12/10/18 05:41 ABG Base Excess 1.7 mmol/L (-2.0-3.0) 12/10/18 05:41 ABG Hemoglobin 13.9 g/dL (11.7-17.4) 12/10/18 05:41 ABG Carboxyhemoglobin 1.5 % (0.5-1.5) 12/10/18 05:41 POC ABG HHb (Measured) 3.0 % (0.0-5.0) 12/10/18 05:41 ABG Methemoglobin 1.1 % (0.0-3.0) 12/10/18 05:41 Kirk Test Pos 12/10/18 05:41 VBG pH 7.35 (7.32-7.43) 12/09/18 15:40 VBG pCO2 51 mmHg (40-60) 12/09/18 15:40 VBG HCO3 25.2 mmol/L 12/09/18 15:40 VBG Total CO2 29.8 mmol/L (22-28) H 12/09/18 15:40 VBG O2 Sat (Calc) 63.5 % (40-65) 12/09/18 15:40 VBG Base Excess 1.7 mmol/L (0.0-2.0) 12/09/18 15:40 VBG Potassium 4.1 mmol/L (3.6-5.2) 12/09/18 15:40 A-a O2 Difference 130.0 mm/Hg 12/09/18 16:15 Respiratory Index 2.5 12/09/18 16:15 Hgb O2 Saturation 94.4 % (95.0-98.0) L 12/10/18 05:41 Sodium 136.0 mmol/l (132-148) 12/09/18 15:40 Chloride 101.0 mmol/L (98-107) 12/09/18 15:40 Glucose 123 mg/dl (65-105) H 12/09/18 15:40 Lactate 1.4 mmol/L (0.7-2.1) 12/09/18 15:40 Liter Flow 15.0 12/10/18 05:41 FiO2 32.0 % 12/09/18 16:15 Sodium 134 mmol/L (132-148) 12/13/18 08:09 Potassium 4.5 mmol/L (3.6-5.2) 12/13/18 08:09 Chloride 95 mmol/L (98-107) L 12/13/18 08:09 Carbon Dioxide 33 mmol/L (22-30) H 12/13/18 08:09 Anion Gap 11 (10-20) 12/13/18 08:09 BUN 16 mg/dL (7-17) 12/13/18 08:09 Creatinine 0.7 mg/dL (0.7-1.2) 12/13/18 08:09 Est GFR ( Amer) > 60 12/13/18 08:09 Est GFR (Non-Af Amer) > 60 12/13/18 08:09 Random Glucose 109 mg/dL (65-105) H 12/13/18 08:09 Calcium 8.8 mg/dl (8.6-10.4) 12/13/18 08:09 Phosphorus 3.5 mg/dL (2.5-4.5) 12/13/18 08:09 Magnesium 1.9 mg/dL (1.6-2.3) 12/13/18 08:09 Total Bilirubin 0.4 mg/dL (0.2-1.3) 12/13/18 08:09 AST 48 U/L (14-36) H D 12/13/18 08:09 ALT 31 U/L (9-52) 12/13/18 08:09 Alkaline Phosphatase 102 U/L (38-126) 12/13/18 08:09 Total Protein 7.1 g/dL (6.3-8.3) 12/13/18 08:09 Albumin 3.9 g/dL (3.5-5.0) 12/13/18 08:09 Globulin 3.3 gm/dL (2.2-3.9) 12/13/18 08:09 Albumin/Globulin Ratio 1.2 (1.0-2.1) 12/13/18 08:09 Procalcitonin 0.13 NG/ML (0.19-0.49) L 12/10/18 09:53 Venous Blood Potassium 4.1 mmol/L (3.6-5.2) 12/09/18 15:40 Urine Color Yellow (YELLOW) 12/09/18 16:54 Urine Clarity Clear (Clear) 12/09/18 16:54 Urine pH 5.0 (5.0-8.0) 12/09/18 16:54 Ur Specific [place] 1.020 (1.003-1.030) 12/09/18 16:54 Urine Protein 2+ mg/dL (NEGATIVE) H 12/09/18 16:54 Urine Glucose (UA) Normal mg/dL (Normal) 12/09/18 16:54 Urine Ketones Negative mg/dL (NEGATIVE) 12/09/18 16:54 Urine Blood Negative (NEGATIVE) 12/09/18 16:54 Urine Nitrate Negative (NEGATIVE) 12/09/18 16:54 Urine Bilirubin Negative (NEGATIVE) 12/09/18 16:54 Urine Urobilinogen 2.0 mg/dL (0.2-1.0) H 12/09/18 16:54 Ur Leukocyte Esterase Neg Jose/uL (Negative) 12/09/18 16:54 Urine WBC (Auto) 1 /hpf (0-5) 12/09/18 16:54 Urine RBC (Auto) 1 /hpf (0-3) 12/09/18 16:54 Ur Squamous Epith Cells 2 /hpf (0-5) 12/09/18 16:54 Urine Bacteria Rare (<OCC) 12/09/18 16:54 Influenza Typ A,B (EIA) Negative for flu a/b (NEGATIVE) 12/09/18 Unknown Ur L.pneumophila Ag Negative (NEGATIVE) 12/11/18 21:48 - Hospital Course Hospital Course: Patient admitted with a COPD still smokes Long discussion with the patient's about needing of home oxygen Patient refuses home oxygen patient states he feels comfortable on off the room air patient is off the room air is 87 to 80% patient been told that she really needs home oxygen work-up and she refused to discuss with the pulmonary pulmonary cleared the patient to discharge if patient is refusing further home care Hemoglobin is 714 creatinine is 7.7 patient advised to take all the medications follow-up with the cancellation patient advised to see the PMD within next 48 hours Patient advised to stop smoking patient family is aware spoke to the patient's family wanted admissions DuoNeb Ecotrin Tegretol Plavix Vasotec Ceftriaxone Azithromycin Solu-Medrol Lopressor Protonix Crestor Moderate to high complexity of care. Plan of care discussed with patient &/or family & staff. Medications reviewed and reconciled. Labs reviewed. Vitals reviewed. Discharge Exam - Head Exam Head Exam: ATRAUMATIC, NORMOCEPHALIC - Eye Exam Eye Exam: EOMI, Normal appearance, PERRL Pupil Exam: NORMAL ACCOMODATION, PERRL - ENT Exam ENT Exam: Mucous Membranes Moist - Neck Exam Neck exam: Full Rom - Respiratory Exam Respiratory Exam: Decreased Breath Sounds - Cardiovascular Exam Cardiovascular Exam: REGULAR RHYTHM, +S1, +S2 - GI/Abdominal Exam GI & Abdominal Exam: Diminished Bowel Sounds, Soft - Rectal Exam Rectal Exam: Deferred - Neurological Exam Neurological exam: Oriented x3 Discharge Plan - Discharge Medications Prescriptions: Nebulizer Accessories [A.i.r.s. Nebulizer] 1 each MC Q4H PRN #1 kit PRN Reason: Wheezing Nebulizer and Compressor [[place] Choice Nebulizer] 1 each MC Q6H PRN #1 each PRN Reason: Wheezing Albuterol/Ipratropium [Duoneb 3 mg/0.5 mg (3 ml) UD] 3 ml INH RQ6 #50 neb Methylprednisolone [Medrol Dose Pack (21 tabs)] 4 mg PO DAILY #21 mg - Follow Up Plan Condition: GOOD Disposition: HOME/ ROUTINE Instructions: Pneumonia, Adult (DC), Exacerbation of COPD (DC), Methylprednisolone, Sepsis (DC) Referrals: Chrissie Martin MD [Staff Provider] -
--- NOTE | 2018-12-15 08:50 | CP.PCM.PN ---
Subjective - Date & Time of Evaluation Date of Evaluation: 12/14/18 Time of Evaluation: 11:00 - Subjective Subjective: ALERT, AWAKE, DENIES CHEST PAIN, NO ACUTE DISTRESS. Objective - Vital Signs/Intake and Output Vital Signs (last 24 hours): Temp Pulse Resp BP Pulse Ox 97.4 F L 72 20 157/81 H 92 L 12/14/18 07:54 12/14/18 07:54 12/14/18 07:54 12/14/18 09:11 12/14/18 00:00 - Labs Labs: 12/13/18 08:09 12/13/18 08:09 Assessment and Plan - Assessment and Plan (Free Text) Assessment: Patient seen and examined in the room. Alert and oriented x3, has no wheezing but sob on exertion. Room air oxygen saturation is 85-89%. Advised home oxygen as per DR Simms but patient refused, says that it was always like that but she don't want home oxygen. Discussed with DR Wendie Martin plan to discharge home on home nebulizer set up and medrol dose pack. Advised to follow up with PMD in 1 week.
== END 2018-12-14 15:41 | disposition home or self-care (01) | DRG 871 ==
LOC: C.ER 14:10 → C.3T 16:42 → C.9I 18:31 → OBSVTOIN 18:54 → C.3T 12-12 14:57
PROVIDERS: ADMIT Internal Medicine Nephrology; ATTEND Internal Medicine Nephrology
DX: A41.9 Sepsis, unspecified organism (principal); J18.0 Bronchopneumonia, unspecified organism; J96.90 Respiratory failure, unspecified, unspecified whether with hypoxia or hypercapnia; J44.0 Chronic obstructive pulmonary disease with (acute) lower respiratory infection; R64 Cachexia; Z68.1 Body mass index [BMI] 19.9 or less, adult; E78.5 Hyperlipidemia, unspecified; F17.210 Nicotine dependence, cigarettes, uncomplicated; I10 Essential (primary) hypertension; I25.10 Atherosclerotic heart disease of native coronary artery without angina pectoris; Z95.1 Presence of aortocoronary bypass graft; S41.119A Laceration without foreign body of unspecified upper arm, initial encounter; S70.01XA Contusion of right hip, initial encounter; I73.9 Peripheral vascular disease, unspecified